=== PATIENT | male | born 1970 | race African-American/Black ===

== ENCOUNTER → 2016-04-17 | Outpatient (CLI) | payer OTHER ==
--- NOTE | 2016-04-17 11:41 | XR ---
EXAMINATION TYPE: XR chest 2V DATE OF EXAM: 04/17/2016 11:26 AM COMPARISON: 04/28/2014 INDICATION: Tobacco use TECHNIQUE: Single frontal view of the chest is obtained. FINDINGS: The heart size is normal. The pulmonary vasculature is normal. The lungs are clear. IMPRESSION: 1. No acute pulmonary process.
== END | disposition home or self-care (01) ==
LOC: LABWHC1 10:55
PROVIDERS: ATTEND Nurse Practitioner
DX: Z51.81 Encounter for therapeutic drug level monitoring (principal); Z79.899 Other long term (current) drug therapy; F17.209 Nicotine dependence, unspecified, with unspecified nicotine-induced disorders
CPT/HCPCS: 36415; 71020; 80164

== ENCOUNTER 2018-03-01 19:38 | Emergency (ER) | payer OTHER ==
[2018-03-01 20:07] VITALS: BP 153/98; PULSE 84; RESP 18; TEMP 98.3
--- NOTE | 2018-03-01 21:16 | CT ---
EXAMINATION TYPE: CT brain sukhi long DATE OF EXAM: 03/01/2018 COMPARISON: None HISTORY: pt fell off deck, hitting LT side of head CT DLP: 1349.8 mGycm, Automated exposure control for dose reduction was used. CONTRAST: Patient injected with 0 mL of Isovue 300. CT of the brain is performed utilizing 3 mm thick sections through the posterior fossa and 3 mm thick sections through the remaining calvarium. Study is performed within 24 hours of arrival to the hospital. No abnormal hyperdensity is present to suggest an acute intracranial hemorrhage. No mass lesion is evident. No acute infarcts are evident. Ventricles and sulci are appropriate for the patient age. There is soft tissue swelling over the left supraorbital region. No underlying fracture is evident. Paranasal sinuses and mastoid air cells within the [id number] are clear. IMPRESSIONS: 1. No acute intracranial process. 2. Mild soft tissue swelling over the left frontal region. CT cervical spine. COMPARISON: None CT of the cervical spine is performed in the axial plane at 2 mm thick sections. Reconstructed image s in the coronal, and sagittal plane are reviewed on the computer. No acute fractures are evident. Vertebral body alignment is normal. Disc heights are preserved. Vertebral body heights are preserved. No spinal canal stenosis is evident. No neural foraminal stenosis is evident. IMPRESSIONS: 1. Normal CT cervical spine.
--- NOTE | 2018-03-01 21:33 | ED ---
Fall HPI - General Chief Complaint: Fall Stated Complaint: fall Time Seen by Provider: 03/01/18 20:15 Source: patient Mode of arrival: ambulatory - History of Present Illness Initial Comments: This is a 47-year-old male the ER for evaluation this male presents ER for evaluation status post fall falling off back landing on the back and back. This happened about 3-4 hours prior to arrival, also complains of knee pain is unconcerned about his knee pain. Patient did take Motrin with no specific help. No shortness of breath. No numbness or tingling in extremities. Patient denies any drug or alcohol use MD Complaint: fall -: hour(s) (4) When Fall Occurred: 4-6 hours [employer] Fall Witnessed: no Place Fall Occurred: home Loss of Consciousness: none Prolonged Down Time?: no Symptoms Prior to Fall: none Location: head, neck Location - Extremities: Left: Shoulder Severity scale (1-10): 2 Context: tripped/slipped Associated Symptoms: denies - Related Data Home Medications Medication Instructions Recorded Confirmed Divalproex [Depakote] 1,000 mg PO HS 03/01/18 03/01/18 Enalapril [Vasotec] 2.5 mg PO DAILY 03/01/18 03/01/18 Ibuprofen [Motrin Ib] 600 mg PO DAILY 03/01/18 03/01/18 Metformin (Unknown) 1 tab PO BID 03/01/18 03/01/18 buPROPion XL [Wellbutrin XL] 150 mg PO DAILY 03/01/18 03/01/18 Allergies Allergy/AdvReac Type Severity Reaction Status Date / Time No Known Allergies Allergy Verified 03/01/18 20:27 Review of Systems ROS Statement: Those systems with pertinent positive or pertinent negative responses have been documented in the HPI. ROS Other: All systems not noted in ROS Statement are negative. Past Medical History Past Medical History: Diabetes Mellitus, Hyperlipidemia, Hypertension, Seizure Disorder History of Any Multi-Drug Resistant Organisms: None Reported Past Surgical History: No Surgical Hx Reported Past Psychological History: Bipolar Smoking Status: Current every day smoker Past Alcohol Use History: None Reported Past Drug Use History: None Reported General Exam Limitations: no limitations General appearance: alert, in no apparent distress Head exam: Present: atraumatic, normocephalic, normal inspection Eye exam: Present: normal appearance, PERRL, EOMI. Absent: scleral icterus, conjunctival injection, periorbital swelling ENT exam: Present: normal exam, mucous membranes moist Neck exam: Present: normal inspection. Absent: tenderness, meningismus, lymphadenopathy Respiratory exam: Present: normal lung sounds bilaterally. Absent: respiratory distress, wheezes, rales, rhonchi, stridor Cardiovascular Exam: Present: regular rate, normal rhythm, normal heart sounds. Absent: systolic murmur, diastolic murmur, rubs, gallop, clicks GI/Abdominal exam: Present: soft, normal bowel sounds. Absent: distended, tenderness, guarding, rebound, rigid Extremities exam: Present: normal inspection, full ROM, normal capillary refill. Absent: tenderness, pedal edema, joint swelling, calf tenderness Back exam: Present: normal inspection Neurological exam: Present: alert, oriented X3, CN II-XII intact Psychiatric exam: Present: normal affect, normal mood Skin exam: Present: warm, dry, intact, normal color. Absent: rash Course Vital Signs 03/01/18 20:01 Temperature 98.3 F Pulse Rate 84 Respiratory 18 Rate Blood Pressure 153/98 O2 Sat by Pulse 100 Oximetry - Reevaluation(s) Reevaluation #1: 03/01/18 22:00 Patient denies any specific complaints pain or needing. Medication currently. Reevaluation #2: 03/01/18 22:00 Patient refusing further x-rays Medical Decision Making - Medical Decision Making 47 male status post fall fall off tach with some neck pain and some shoulder pain. Patient has normal CAT scan brain C-spine, negative left shoulder x-ray can be discharged home - Radiology Data Radiology results: report reviewed (CT brain C-spine and left shoulder x-ray are negative for acute disease), image reviewed Disposition Clinical Impression: Fall, Neck contusion, Contusion of left shoulder Disposition: HOME SELF-CARE Condition: Good Instructions: Cervical Strain (ED), Contusion in Adults (ED) Is patient prescribed a controlled substance at d/c from ED?: No Referrals: [facility] [Primary Care Provider] - 1-2 days
--- NOTE | 2018-03-01 22:12 | XR ---
EXAMINATION TYPE: XR shoulder limited LT DATE OF EXAM: 03/01/2018 COMPARISON: NONE HISTORY: Pain after falling TECHNIQUE: Single view FINDINGS: I see no fracture nor dislocation. Glenohumeral joint is anatomic. There are no pathologic calcifications. IMPRESSION: Negative limited left shoulder exam.
--- NOTE | 2018-03-01 22:14 | XR ---
EXAMINATION TYPE: XR chest 1V DATE OF EXAM: 03/01/2018 COMPARISON: 04/17/2016 HISTORY: Pain after fall TECHNIQUE: Single frontal view of the chest is obtained. FINDINGS: Heart and mediastinum are normal. Lungs are clear. Diaphragm is normal. Bony thorax appear s normal. IMPRESSION: Normal chest. No change.
== END 2018-03-01 22:23 | disposition home or self-care (01) ==
LOC: EC 19:38
DX: S40.012A Contusion of left shoulder, initial encounter (principal); S10.93XA Contusion of unspecified part of neck, initial encounter; E11.9 Type 2 diabetes mellitus without complications; I10 Essential (primary) hypertension; G40.909 Epilepsy, unspecified, not intractable, without status epilepticus; F31.9 Bipolar disorder, unspecified; F17.200 Nicotine dependence, unspecified, uncomplicated; Z79.84 Long term (current) use of oral hypoglycemic drugs; Z79.899 Other long term (current) drug therapy; W01.198A Fall on same level from slipping, tripping and stumbling with subsequent striking against other object, initial encounter; Y92.009 Unspecified place in unspecified non-institutional (private) residence as the place of occurrence of the external cause
CPT/HCPCS: 70450; 71045; 72125; 99284

== ENCOUNTER 2018-05-21 10:49 | Emergency (ER) | payer OTHER ==
[2018-05-21] MEDS ORDERED: ASPIRIN 81 MG PO STA (12:23)
--- NOTE | 2018-05-21 12:23 | ED ---
Nausea/Vomiting/Diarrhea HPI - General Chief complaint: Nausea/Vomiting/Diarrhea Stated complaint: Nausea Time Seen by Provider: 05/21/18 11:19 Source: patient Mode of arrival: ambulatory Limitations: no limitations - History of Present Illness Initial comments: 47-year-old male past nuchal history of diabetes, hypertension, hyperlipidemia, current every day smoker presented today for chief complaint of abdominal pain left lower quadrant, nausea and diarrhea. Patient states last night he began experiencing diarrhea, he denies melena or hematochezia. He states is much softer than his usual bowel movement. She states he had pizza last night prior to the onset of symptoms. Patient states this morning he had nausea and was dry heaving, he states he began experiencing left lower abdominal pain that is stabbing increases with movements. Patient states he has not had a fever, admits to bodyaches. He denies hematemesis, dizziness, visual changes, weakness. He states he has had on-and-off mild dull headache denies this being the worst headache of his life. Patient states this morning he felt as though he had mild chest discomfort after dry heaving, denies back pain, dyspnea, dyspnea upon exertion, remaining ROS (-). Upon arrival patient appears well, no signs of acute distress. VS reveal elevated BP, pt state he took his medication prior to arrival. - Related Data Home Medications Medication Instructions Recorded Confirmed Divalproex [Depakote] 1,000 mg PO HS 03/01/18 05/21/18 buPROPion XL [Wellbutrin XL] 150 mg PO DAILY 03/01/18 05/21/18 Cholecalciferol [Vitamin D3] 5,000 unit PO DAILY 05/21/18 05/21/18 Enalapril [Vasotec] 10 mg PO DAILY 05/21/18 05/21/18 Simvastatin [Zocor] 20 mg PO HS 05/21/18 05/21/18 metFORMIN HCL 1,000 mg PO BID 05/21/18 05/21/18 Allergies Allergy/AdvReac Type Severity Reaction Status Date / Time No Known Allergies Allergy Verified 05/21/18 11:28 Review of Systems ROS Statement: Those systems with pertinent positive or pertinent negative responses have been documented in the HPI. ROS Other: All systems not noted in ROS Statement are negative. Past Medical History Past Medical History: Diabetes Mellitus, Hyperlipidemia, Hypertension, Seizure Disorder History of Any Multi-Drug Resistant Organisms: None Reported Past Surgical History: No Surgical Hx Reported Past Psychological History: Bipolar Smoking Status: Current every day smoker Past Alcohol Use History: None Reported Past Drug Use History: None Reported General Exam - General Exam Comments Initial Comments: General: The patient is awake and alert, in no distress, and does not appear acutely ill. Eye: Pupils are equal, round and reactive to light, extra-ocular movements are intact. No nystagmus. There is normal conjunctiva bilaterally. No signs of icterus. Ears, nose, mouth and throat: There are moist mucous membranes and no oral lesions. Neck: The neck is supple, there is no tenderness or JVD. Cardiovascular: There is a regular rate and rhythm. No murmur, rub or gallop is appreciated. Respiratory: Lungs are clear to auscultation, respirations are non-labored, breath sounds are equal. No wheezes, stridor, rales, or rhonchi. Gastrointestinal: No noted diaphoresis, jaundice, pallor, protecting postures or squirming. Symmetrical pigmentation of abdomen without signs of inflammation, [scars], or striae. Umbilicus mildline, inverted without swelling. No dilated veins. Abdomen contour obese, no noted abdominal distention. No visible masses. No peristalsis, aortic pulsations, or ventral hernia. Bowel sounds audible in all 4 quadrants, unremarkable. No friction rubs or venous hums. No epigastic, hepatic or abdominal bruits. Mild tenderness to deep palpation of the left lower quadrant. No rigidity or guarding no protecting postures.. Liver edge, not palpable. Spleen edge, right and left kidney not palpable. Superior bladder margin non-tender. Special Testing: Negative [place], [place], McBurney, Tayla, cutaneous hyperesthesia. Iliopsoas and obturator tests negative bilaterally. Negative Heel Jar test. No CVA tenderness. Digital rectal exam deferred. Negative izaguirre turners or cullens sign Musculoskeletal: Normal ROM, no tenderness. Strength 5/5. Sensation intact. Radial and DP pulses equal bilaterally 2+. Neurological: A&O x 3. CN II-XII intact, There are no obvious motor or sensory deficits. Coordination appears grossly intact. Speech is normal. Skin: Skin is warm and dry and no rashes or lesions are noted. No lower extremity edema (-) Homans b/l. Psychiatric: Cooperative, appropriate mood & affect, normal judgment. Limitations: no limitations Course Vital Signs 05/21/18 05/21/18 11:03 13:16 Temperature 98.4 F Pulse Rate 78 86 Respiratory 16 18 Rate Blood Pressure 145/99 131/99 O2 Sat by Pulse 98 100 Oximetry Medical Decision Making - Medical Decision Making 47-year-old male presenting for abdominal pain, diarrhea, nausea, dry heaving. Pt laboratory studies unremarkable. Patient hydrated upon examination. Abdominal exam revealed tenderness to palpation of the left lower quadrant. CT revealed findings consistent with enteritis I feel this correlates clinically. Patient has remained symptoms free throughout duration of visit >4 hours. Pt given IVF. At this time I feel patient is stable for discharge with the patient follow-up. Return parameters were discussed at length the patient who verbalized understanding. Patient discharged. Will after discussing the case with a provider Dr. Berrios. - Lab Data Result diagrams: 05/21/18 12:55 05/21/18 12:55 Lab Results 05/21/18 05/21/18 05/21/18 Range/Units 12:55 12:55 12:55 WBC 6.7 (3.8-10.6) k/uL RBC 5.18 (4.30-5.90) m/uL Hgb 13.9 (13.0-17.5) gm/dL Hct 44.0 (39.0-53.0) % MCV 85.0 (80.0-100.0) fL MCH 26.8 (25.0-35.0) pg MCHC 31.5 (31.0-37.0) g/dL RDW 13.7 (11.5-15.5) % Plt Count 212 (150-450) k/uL Neutrophils % 44 % Lymphocytes % 45 % Monocytes % 6 % Eosinophils % 3 % Basophils % 1 % Neutrophils # 2.9 (1.3-7.7) k/uL Lymphocytes # 3.0 (1.0-4.8) k/uL Monocytes # 0.4 (0-1.0) k/uL Eosinophils # 0.2 (0-0.7) k/uL Basophils # 0.0 (0-0.2) k/uL Sodium 138 (137-145) mmol/L Potassium 4.8 (3.5-5.1) mmol/L Chloride 102 (98-107) mmol/L Carbon Dioxide 23 (22-30) mmol/L Anion Gap 13 mmol/L BUN 14 (9-20) mg/dL Creatinine 0.65 L (0.66-1.25) mg/dL Est GFR (CKD-EPI)AfAm >90 (>60 ml/min/1.73 sqM) Est GFR (CKD-EPI)NonAf >90 (>60 ml/min/1.73 sqM) Glucose 109 H (74-99) mg/dL Calcium 9.9 (8.4-10.2) mg/dL Total Bilirubin 0.3 (0.2-1.3) mg/dL AST 18 (17-59) U/L ALT 24 (21-72) U/L Alkaline Phosphatase 54 (38-126) U/L Total Creatine Kinase 160 (55-170) U/L CK-MB (CK-2) 1.4 (0.0-2.4) ng/mL CK-MB (CK-2) Rel Index 0.9 Troponin I <0.012 (0.000-0.034) ng/mL Total Protein 7.3 (6.3-8.2) g/dL Albumin 4.4 (3.5-5.0) g/dL Lipase 202 (23-300) U/L Urine Color Urine Appearance (Clear) Urine pH (5.0-8.0) Ur Specific [place] (1.001-1.035) Urine Protein (Negative) Urine Glucose (UA) (Negative) Urine Ketones (Negative) Urine Blood (Negative) Urine Nitrite (Negative) Urine Bilirubin (Negative) Urine Urobilinogen (<2.0) mg/dL Ur Leukocyte Esterase (Negative) 05/21/18 Range/Units 13:05 WBC (3.8-10.6) k/uL RBC (4.30-5.90) m/uL Hgb (13.0-17.5) gm/dL Hct (39.0-53.0) % MCV (80.0-100.0) fL MCH (25.0-35.0) pg MCHC (31.0-37.0) g/dL RDW (11.5-15.5) % Plt Count (150-450) k/uL Neutrophils % % Lymphocytes % % Monocytes % % Eosinophils % % Basophils % % Neutrophils # (1.3-7.7) k/uL Lymphocytes # (1.0-4.8) k/uL Monocytes # (0-1.0) k/uL Eosinophils # (0-0.7) k/uL Basophils # (0-0.2) k/uL Sodium (137-145) mmol/L Potassium (3.5-5.1) mmol/L Chloride (98-107) mmol/L Carbon Dioxide (22-30) mmol/L Anion Gap mmol/L BUN (9-20) mg/dL Creatinine (0.66-1.25) mg/dL Est GFR (CKD-EPI)AfAm (>60 ml/min/1.73 sqM) Est GFR (CKD-EPI)NonAf (>60 ml/min/1.73 sqM) Glucose (74-99) mg/dL Calcium (8.4-10.2) mg/dL Total Bilirubin (0.2-1.3) mg/dL AST (17-59) U/L ALT (21-72) U/L Alkaline Phosphatase (38-126) U/L Total Creatine Kinase (55-170) U/L CK-MB (CK-2) (0.0-2.4) ng/mL CK-MB (CK-2) Rel Index Troponin I (0.000-0.034) ng/mL Total Protein (6.3-8.2) g/dL Albumin (3.5-5.0) g/dL Lipase (23-300) U/L Urine Color Yellow Urine Appearance Clear (Clear) Urine pH 7.0 (5.0-8.0) Ur Specific [place] 1.019 (1.001-1.035) Urine Protein Negative (Negative) Urine Glucose (UA) Negative (Negative) Urine Ketones 1+ H (Negative) Urine Blood Negative (Negative) Urine Nitrite Negative (Negative) Urine Bilirubin Negative (Negative) Urine Urobilinogen <2.0 (<2.0) mg/dL Ur Leukocyte Esterase Negative (Negative) - EKG Data EKG Comments: Ventricular rate 72 bpm, HI interval 130 ms, to administration 80 ms, QT/QTc 356/389 ms, normal sinus rhythm, nonspecific T-wave abnormality no ST patient or depression. No previous comparison. Interpretted by myself as well as attending provider Disposition Clinical Impression: Diarrhea, Abdominal pain Disposition: HOME SELF-CARE Condition: Good Instructions (If sedation given, give patient instructions): Acute Diarrhea (ED), Abdominal Pain (ED) Additional Instructions: Please use medication as discussed. Please follow-up with family doctor in the next 2 days of symptoms have not improved. Please return to emergency room if the symptoms increase or worsen or for any other concerns. Is patient prescribed a controlled substance at d/c from ED?: No Referrals: [facility] [Primary Care Provider] - 1-2 days Time of Disposition: 15:22
[2018-05-21 13:17] VITALS: PULSE 86; RESP 18
[2018-05-21 14:07] LABS: Basophils % (A) 1 %; Eosinophils # (A) 0.2 k/uL (0-0.7); Eosinophils % (A) 3 %; HGB 13.9 gm/dL (13.0-17.5); Lymphocytes % (A) 45 %; MCH 26.8 pg (25.0-35.0); MCHC 31.5 g/dL (31.0-37.0); Mean Platelet Volume 8.7; Monocytes # (A) 0.4 k/uL (0-1.0); Monocytes % (A) 6 %; Neutrophils # (A) 2.9 k/uL (1.3-7.7); Neutrophils % (A) 44 %; Platelet Count 212 k/uL (150-450); RBC 5.18 m/uL (4.30-5.90); RDW 13.7 % (11.5-15.5); WBC 6.7 k/uL (3.8-10.6)
[2018-05-21 14:09] LABS: Appearance,Urine Clear (Clear); Bilirubin,Urine Negative (Negative); Blood,Urine Negative (Negative); Color,Urine Yellow; Glucose,Urine (UA) Negative (Negative); Ketones,Urine 1+ (Negative); Leukocyte Esterase,Urine Negative (Negative); Nitrite,Urine Negative (Negative); Protein,Urine Negative (Negative); Specific Gravity,Urine 1.019 (1.001-1.035); Urobilinogen,Urine <2.0 mg/dL (<2.0)
[2018-05-21 14:19] LABS: ALT 24 U/L (21-72); AST 18 U/L (17-59); Albumin 4.4 g/dL (3.5-5.0); Alkaline Phosphatase 54 U/L (38-126); Anion Gap 13 mmol/L; Blood Urea Nitrogen 14 mg/dL (9-20); Calcium 9.9 mg/dL (8.4-10.2); Carbon Dioxide 23 mmol/L (22-30); Chloride 102 mmol/L (98-107); Glucose 109 mg/dL (74-99); Lipase 202 U/L (23-300); Potassium 4.8 mmol/L (3.5-5.1); Sodium 138 mmol/L (137-145); Total Bilirubin 0.3 mg/dL (0.2-1.3); Total Protein 7.3 g/dL (6.3-8.2)
[2018-05-21 14:38] LABS: Creatine Kinase 160 U/L (55-170)
[2018-05-21 14:51] LABS: Creatine Kinase MB 1.4 ng/mL (0.0-2.4); Troponin I <0.012 ng/mL (0.000-0.034)
--- NOTE | 2018-05-21 15:10 | CT ---
EXAMINATION TYPE: CT abdomen pelvis w con DATE OF EXAM: 05/21/2018 COMPARISON: None HISTORY: Patient complains of LUQ pain, nausea, vomiting, and diarrhea. CT DLP: 940.7 mGycm Automated exposure control for dose reduction was used. TECHNIQUE: Helical acquisition of images from the lung bases through the pelvis have been completed. CONTRAST: Performed without Oral Contrast and with IV Contrast, patient injected with 100 mL of Isovue 370. FINDINGS: LUNG BASES: No significant abnormality is appreciated. AORTA: No significant abnormality is appreciated. LIVER/GB: No significant abnormality is appreciated. PANCREAS: No significant abnormality is seen. SPLEEN: No significant abnormality is seen. ADRENALS: No significant abnormality is seen. KIDNEYS: No significant abnormality is seen. REPRODUCTIVE ORGANS: No significant abnormality is seen BOWEL: Small bowel abbasi show some thickening. Appendix is measuring short axis of approximately 7 m m. No periappendiceal inflammatory change. FREE AIR: No Free Air visible. ASCITES: None visible. PELVIC ADENOPATHY: None visualized. RETROPERITONEAL ADENOPATHY: No Retroperitoneal Adenopathy visible. URINARY BLADDER: No significant abnormality is seen. OSSEOUS STRUCTURES: Small posterior disc bulge L5-S1. IMPRESSION: FINDINGS COMPATIBLE WITH ENTERITIS. Borderline appendiceal measurement without inflammatory change s to suggest appendicitis, follow-up as indicated
[2018-05-21 16:03] VITALS: BP 149/93; TEMP 97.9
== END 2018-05-21 16:03 | disposition home or self-care (01) ==
LOC: EC 10:49
DX: R19.7 Diarrhea, unspecified (principal); R10.32 Left lower quadrant pain; R94.31 Abnormal electrocardiogram [ECG] [EKG]; R11.2 Nausea with vomiting, unspecified; R51 Headache; R52 Pain, unspecified; E11.9 Type 2 diabetes mellitus without complications; E78.5 Hyperlipidemia, unspecified; I10 Essential (primary) hypertension; G40.909 Epilepsy, unspecified, not intractable, without status epilepticus; F31.9 Bipolar disorder, unspecified; F17.200 Nicotine dependence, unspecified, uncomplicated; Z79.84 Long term (current) use of oral hypoglycemic drugs; Z79.899 Other long term (current) drug therapy
CPT/HCPCS: 36415; 74177; 80053; 81003; 82550; 82553; 83690; 84484; 85025; 93005; 99284

== ENCOUNTER 2020-08-09 15:22 | Emergency (ER) | payer OTHER ==
[2020-08-09 16:49] VITALS: BP 131/82; PULSE 75; RESP 18; TEMP 97.9
[2020-08-09] MEDS ORDERED: SODIUM CHLORIDE 0.9% 1,000 ML IV STA (17:48)
[2020-08-09] MEDS ORDERED: ONDANSETRON 4 MG/2 ML VIAL IVP STA (17:48)
[2020-08-09] MEDS ORDERED: DICYCLOMINE 10 MG/ML 2 ML AMP IM STA (17:48)
[2020-08-09] MEDS ORDERED: PANTOPRAZOLE 40 MG/10 ML VIAL IVP STA (17:48)
[2020-08-09 18:26] LABS: Basophils # (A) 0.1 k/uL (0-0.2); Basophils % (A) 1 %; Eosinophils # (A) 0.2 k/uL (0-0.7); Eosinophils % (A) 3 %; HCT 43.2 % (39.0-53.0); HGB 14.5 gm/dL (13.0-17.5); Lymphocytes # (A) 2.4 k/uL (1.0-4.8); Lymphocytes % (A) 45 %; MCH 28.3 pg (25.0-35.0); MCHC 33.5 g/dL (31.0-37.0); MCV 84.5 fL (80.0-100.0); Monocytes # (A) 0.2 k/uL (0-1.0); Monocytes % (A) 4 %; Neutrophils # (A) 2.4 k/uL (1.3-7.7); Neutrophils % (A) 46 %; Platelet Count 211 k/uL (150-450); RBC 5.11 m/uL (4.30-5.90); RDW 13.3 % (11.5-15.5); WBC 5.3 k/uL (3.8-10.6)
[2020-08-09 18:30] LABS: Appearance,Urine Clear (Clear); Bilirubin,Urine Negative (Negative); Blood,Urine Negative (Negative); Color,Urine Yellow; Glucose,Urine (UA) Trace (Negative); Ketones,Urine 1+ (Negative); Leukocyte Esterase,Urine Negative (Negative); Nitrite,Urine Negative (Negative); Protein,Urine Negative (Negative); Specific Gravity,Urine 1.025 (1.001-1.035)
[2020-08-09 18:40] LABS: ALT 14 U/L (4-49); AST 23 U/L (17-59); African American GFR (CKD) >90 (>60 ml/min/1.73 sqM); Albumin 4.5 g/dL (3.5-5.0); Alkaline Phosphatase 59 U/L (38-126); Anion Gap 8 mmol/L; Blood Urea Nitrogen 18 mg/dL (9-20); Calcium 9.8 mg/dL (8.4-10.2); Carbon Dioxide 26 mmol/L (22-30); Chloride 105 mmol/L (98-107); Glucose 148 mg/dL (74-99); Lipase 144 U/L (23-300); Non-African American GFR(CKD) >90 (>60 ml/min/1.73 sqM); Sodium 139 mmol/L (137-145); Total Bilirubin 0.5 mg/dL (0.2-1.3); Total Protein 7.2 g/dL (6.3-8.2)
--- NOTE | 2020-08-09 18:45 | ED ---
Nausea/Vomiting/Diarrhea HPI - General Chief complaint: Nausea/Vomiting/Diarrhea Stated complaint: Vomiting/Diarrhea Time Seen by Provider: 08/09/20 17:30 Source: patient Mode of arrival: ambulatory Limitations: no limitations - History of Present Illness Initial comments: 49-year-old male presents to the emergency department with a chief complaint of nausea and diarrhea 2 days. Patient reports he has been nauseous but never actually vomited. Reports diarrhea for the past 2 days after eating [employer]. States he has not a [employer] in over a month. He reports some diffuse lower abdominal tenderness reports it is only mild periods it does not appear to be post prandial. Patient denies any fevers or chills chest pain or shortness of breath. He denies any hematuria, hematochezia or melena. States the pain is nonradiating otherwise. Denies any penile discharge, testicular swelling or pain. - Related Data Home Medications Medication Instructions Recorded Confirmed Divalproex [Depakote] 1,000 mg PO HS 03/01/18 05/21/18 buPROPion XL [Wellbutrin XL] 150 mg PO DAILY 03/01/18 05/21/18 Cholecalciferol [Vitamin D3] 5,000 unit PO DAILY 05/21/18 05/21/18 Enalapril [Vasotec] 10 mg PO DAILY 05/21/18 05/21/18 Simvastatin [Zocor] 20 mg PO HS 05/21/18 05/21/18 metFORMIN HCL 1,000 mg PO BID 05/21/18 05/21/18 Previous Rx's Medication Instructions Recorded Loperamide [Imodium] 2 mg PO QID #15 capsule 08/09/20 Ondansetron Odt [Zofran Odt] 4 mg PO Q8HR PRN #10 tab 08/09/20 Allergies Allergy/AdvReac Type Severity Reaction Status Date / Time No Known Allergies Allergy Verified 08/09/20 16:49 Review of Systems ROS Statement: Those systems with pertinent positive or pertinent negative responses have been documented in the HPI. ROS Other: All systems not noted in ROS Statement are negative. Past Medical History Past Medical History: Diabetes Mellitus, Hyperlipidemia, Hypertension, Seizure Disorder History of Any Multi-Drug Resistant Organisms: None Reported Past Surgical History: No Surgical Hx Reported Past Psychological History: Bipolar Smoking Status: Current every day smoker Past Alcohol Use History: Occasional Past Drug Use History: None Reported General Exam Limitations: no limitations General appearance: alert, in no apparent distress Head exam: Present: atraumatic, normocephalic, normal inspection Eye exam: Present: normal appearance, PERRL, EOMI Pupils: Present: normal accommodation ENT exam: Present: normal exam, normal oropharynx, mucous membranes moist Neck exam: Present: normal inspection, full ROM. Absent: tenderness Respiratory exam: Present: normal lung sounds bilaterally. Absent: respiratory distress Cardiovascular Exam: Present: regular rate, normal rhythm, normal heart sounds. Absent: systolic murmur GI/Abdominal exam: Present: soft. Absent: distended, tenderness, guarding Extremities exam: Present: normal inspection, full ROM, normal capillary refill. Absent: tenderness, pedal edema, joint swelling Back exam: Present: normal inspection, full ROM. Absent: tenderness, CVA tenderness (R), CVA tenderness (L) Neurological exam: Present: alert, oriented X3 Psychiatric exam: Present: normal affect, normal mood Skin exam: Present: warm, dry, intact, normal color Course Vital Signs 08/09/20 16:44 Temperature 97.9 F Pulse Rate 75 Respiratory 18 Rate Blood Pressure 131/82 O2 Sat by Pulse 98 Oximetry Medical Decision Making - Medical Decision Making 49-year-old male presents to the emergency department with a chief complaint of nausea and diarrhea. On physical examination, no significant abdominal tende rness noted. No CVA tenderness either. Vital signs within normal limits. EKG showing no acute ischemic changes. Laboratory work is unremarkable. I suspect the patient does develop enteritis after eating Fritz's. UA did show some ketones suggesting dehydration. Patient was given IV fluids and Zofran. On reevaluation, he reports a proven symptoms. Will be discharged with antidiarrheal medications as well as Zofran. Advised to follow with a primary care physician. Return primers were thoroughly discussed the patient was assisting agreeable. Case discussed with Dr. Berrios. - Lab Data Result diagrams: 08/09/20 18:12 08/09/20 18:12 Lab Results 08/09/20 08/09/20 08/09/20 Range/Units 18:12 18:12 18:14 WBC 5.3 (3.8-10.6) k/uL RBC 5.11 (4.30-5.90) m/uL Hgb 14.5 (13.0-17.5) gm/dL Hct 43.2 (39.0-53.0) % MCV 84.5 (80.0-100.0) fL MCH 28.3 (25.0-35.0) pg MCHC 33.5 (31.0-37.0) g/dL RDW 13.3 (11.5-15.5) % Plt Count 211 (150-450) k/uL MPV 9.0 Neutrophils % 46 % Lymphocytes % 45 % Monocytes % 4 % Eosinophils % 3 % Basophils % 1 % Neutrophils # 2.4 (1.3-7.7) k/uL Lymphocytes # 2.4 (1.0-4.8) k/uL Monocytes # 0.2 (0-1.0) k/uL Eosinophils # 0.2 (0-0.7) k/uL Basophils # 0.1 (0-0.2) k/uL Sodium 139 (137-145) mmol/L Potassium 4.0 (3.5-5.1) mmol/L Chloride 105 (98-107) mmol/L Carbon Dioxide 26 (22-30) mmol/L Anion Gap 8 mmol/L BUN 18 (9-20) mg/dL Creatinine 0.81 (0.66-1.25) mg/dL Est GFR (CKD-EPI)AfAm >90 (>60 ml/min/1.73 sqM) Est GFR (CKD-EPI)NonAf >90 (>60 ml/min/1.73 sqM) Glucose 148 H (74-99) mg/dL Calcium 9.8 (8.4-10.2) mg/dL Total Bilirubin 0.5 (0.2-1.3) mg/dL AST 23 (17-59) U/L ALT 14 (4-49) U/L Alkaline Phosphatase 59 (38-126) U/L Total Protein 7.2 (6.3-8.2) g/dL Albumin 4.5 (3.5-5.0) g/dL Lipase 144 (23-300) U/L Urine Color Yellow Urine Appearance Clear (Clear) Urine pH 6.0 (5.0-8.0) Ur Specific [place] 1.025 (1.001-1.035) Urine Protein Negative (Negative) Urine Glucose (UA) Trace H (Negative) Urine Ketones 1+ H (Negative) Urine Blood Negative (Negative) Urine Nitrite Negative (Negative) Urine Bilirubin Negative (Negative) Urine Urobilinogen 2.0 (<2.0) mg/dL Ur Leukocyte Esterase Negative (Negative) - EKG Data EKG Comments: Sinus rhythm with no acute ischemic changes Ventricular rate 63, IA 152, QRS 82, QTC 386 Disposition Clinical Impression: Dehydration, Diarrhea Disposition: HOME SELF-CARE Condition: Stable Instructions (If sedation given, give patient instructions): Acute Diarrhea (ED) Additional Instructions: Please return to the Emergency Department if symptoms worsen or any other concerns. Prescriptions: Loperamide [Imodium] 2 mg PO QID #15 capsule Ondansetron Odt [Zofran Odt] 4 mg PO Q8HR PRN #10 tab PRN Reason: Nausea Is patient prescribed a controlled substance at d/c from ED?: No Referrals: None,Stated [Primary Care Provider] - 1-2 days Time of Disposition: 19:08
== END 2020-08-09 19:43 | disposition home or self-care (01) ==
LOC: EC 15:22
DX: E86.0 Dehydration (principal); R19.7 Diarrhea, unspecified; R11.2 Nausea with vomiting, unspecified; I10 Essential (primary) hypertension; E11.9 Type 2 diabetes mellitus without complications; E78.5 Hyperlipidemia, unspecified; G40.909 Epilepsy, unspecified, not intractable, without status epilepticus; F31.9 Bipolar disorder, unspecified; F17.200 Nicotine dependence, unspecified, uncomplicated; Z79.84 Long term (current) use of oral hypoglycemic drugs; Z79.899 Other long term (current) drug therapy
CPT/HCPCS: 36415; 93005; 80053; 83690; 85025; 81003; 99284; 96374; 96375; 96361; 96372; J0500; J2405; C9113

== ENCOUNTER 2020-12-13 14:50 | Emergency (ER) | payer OTHER ==
[2020-12-13 18:06] VITALS: RESP 20
[2020-12-13] MEDS ORDERED: diphenhydrAMINE 50 MG/ML 1 ML VIAL IVP STA (18:20)
[2020-12-13] MEDS ORDERED: ONDANSETRON 4 MG/2 ML VIAL IVP STA (18:20)
[2020-12-13] MEDS ORDERED: MORPHINE SULFATE 4 MG/ML SYRINGE IV STA (18:20)
[2020-12-13] MEDS ORDERED: SODIUM CHLORIDE 0.9% 1,000 ML IV STA (18:20)
[2020-12-13] MEDS ORDERED: FAMOTIDINE 20 MG/2 ML VIAL IV STA (18:22)
[2020-12-13 19:07] LABS: Basophils # (A) 0.1 k/uL (0-0.2); Basophils % (A) 1 %; Eosinophils # (A) 0.1 k/uL (0-0.7); Eosinophils % (A) 2 %; HGB 15.1 gm/dL (13.0-17.5); Lymphocytes # (A) 2.9 k/uL (1.0-4.8); Lymphocytes % (A) 41 %; MCH 27.7 pg (25.0-35.0); MCHC 32.2 g/dL (31.0-37.0); MCV 85.9 fL (80.0-100.0); Mean Platelet Volume 10.1; Monocytes # (A) 0.4 k/uL (0-1.0); Monocytes % (A) 6 %; Neutrophils # (A) 3.5 k/uL (1.3-7.7); Neutrophils % (A) 49 %; Platelet Count 200 k/uL (150-450); RBC 5.47 m/uL (4.30-5.90); RDW 13.2 % (11.5-15.5); WBC 7.1 k/uL (3.8-10.6)
[2020-12-13 19:08] LABS: Appearance,Urine Clear (Clear); Bilirubin,Urine Negative (Negative); Blood,Urine Negative (Negative); Color,Urine Yellow; Glucose,Urine (UA) Negative (Negative); Ketones,Urine Negative (Negative); Leukocyte Esterase,Urine Negative (Negative); Nitrite,Urine Negative (Negative); Protein,Urine Negative (Negative); Specific Gravity,Urine 1.019 (1.001-1.035); Urobilinogen,Urine <2.0 mg/dL (<2.0)
[2020-12-13 19:18] LABS: ALT 17 U/L (4-49); AST 27 U/L (17-59); African American GFR (CKD) >90 (>60 ml/min/1.73 sqM); Albumin 5.1 g/dL (3.5-5.0); Alkaline Phosphatase 55 U/L (38-126); Amylase 98 U/L (30-110); Anion Gap 11 mmol/L; Blood Urea Nitrogen 15 mg/dL (9-20); Calcium 10.4 mg/dL (8.4-10.2); Carbon Dioxide 24 mmol/L (22-30); Chloride 99 mmol/L (98-107); Glucose 116 mg/dL (74-99); Lipase 133 U/L (23-300); Non-African American GFR(CKD) >90 (>60 ml/min/1.73 sqM); Potassium 4.7 mmol/L (3.5-5.1); Sodium 134 mmol/L (137-145); Total Bilirubin 0.6 mg/dL (0.2-1.3); Total Protein 8.5 g/dL (6.3-8.2)
--- NOTE | 2020-12-13 19:42 | XR ---
EXAMINATION TYPE: XR abdomen 2V DATE OF EXAM: 12/13/2020 COMPARISON: NONE HISTORY: Abnormal pain TECHNIQUE: Supine and upright views FINDINGS: There is no sign of intestinal obstruction or pneumoperitoneum. Fecal pattern is normal. Th ere is no sign of a mass. There are no pathologic calcifications over the kidneys. Lung bases are chay ar. IMPRESSION: Nonacute abdomen.
--- NOTE | 2020-12-13 20:06 | ED ---
General Adult HPI - General Chief complaint: Abdominal Pain Stated complaint: ABD Pain Time Seen by Provider: 12/13/20 17:46 Source: patient, RN notes reviewed, old records reviewed Mode of arrival: ambulatory Limitations: no limitations - History of Present Illness Initial comments: I evaluated the patient when he was placed in a room. Patient is a 50-year-old male with past medical history remarkable for diabetes, hypertension, seizure disorder, hyperlipidemia presents emergency Department complaining of nonspecific abdominal discomfort as well as subjective chills going on for last 2 days. He is concerned he may have a stomach flu and presents emergency department for evaluation. States he felt nauseous at one point but no longer does at this time. Denies any diarrhea, constipation. Endorses crampy abdominal discomfort that comes and goes. He states it is minimally there is about how. He states he has had a UTI previously and would like to be evaluated for 1. Denies any chest pain, shortness breath, cough and denies any headaches, weakness, numbness. Denies any rashes. He has no known sick contacts. He presents over concern for possible infectious etiology for symptoms. - Related Data Home Medications Medication Instructions Recorded Confirmed Divalproex [Depakote] 1,000 mg PO HS 03/01/18 05/21/18 buPROPion XL [Wellbutrin XL] 150 mg PO DAILY 03/01/18 05/21/18 Cholecalciferol [Vitamin D3] 5,000 unit PO DAILY 05/21/18 05/21/18 Enalapril [Vasotec] 10 mg PO DAILY 05/21/18 05/21/18 Simvastatin [Zocor] 20 mg PO HS 05/21/18 05/21/18 metFORMIN HCL [Glucophage] 1,000 mg PO BID 05/21/18 05/21/18 Previous Rx's Medication Instructions Recorded Loperamide [Imodium] 2 mg PO QID #15 capsule 08/09/20 Ondansetron Odt [Zofran Odt] 4 mg PO Q8HR PRN #10 tab 08/09/20 Ondansetron Odt [Zofran Odt] 4 mg PO Q8HR PRN 2 Days #6 tab 12/13/20 Allergies Allergy/AdvReac Type Severity Reaction Status Date / Time No Known Allergies Allergy Verified 12/13/20 16:24 Review of Systems ROS Statement: Those systems with pertinent positive or pertinent negative responses have been documented in the HPI. Review of Systems: CONST: Denies fever EYES: Denies blurry vision ENT: Denies nasal congestion C/V: Denies Chest pain RESP: Denies shortness of breath GI: Endorses crampy abdominal pain. : Denies dysuria SKIN: Denies rash. MSK: Denies joint pain. NEURO: Denies headache ROS Other: All systems not noted in ROS Statement are negative. Past Medical History Past Medical History: Diabetes Mellitus, Hyperlipidemia, Hypertension, Seizure Disorder History of Any Multi-Drug Resistant Organisms: None Reported Past Surgical History: No Surgical Hx Reported Past Psychological History: Bipolar Smoking Status: Current every day smoker Past Alcohol Use History: Occasional Past Drug Use History: None Reported General Exam - General Exam Comments Initial Comments: General: Appears in no acute distress. HEAD: Normal with no signs of head trauma. EYES: PERRLA, EOMI, conjunctiva normal, no discharge. ENT: Hearing grossly intact, normal oropharynx. Moist mucous members. RESPIRATORY: Clear breath sounds bilaterally. No wheezes, rales, or rhonchi. C/V: Regular rate and rhythm. S1 and S2 auscultated, no edema, peripheral pulses 2+ and intact throughout ABD: Abdomen is soft, nondistended. Patient is generally nontender to palpation since to be more subjective. I'm able to palpate his abdomen without any wincing without any complaints of pain. There is no guarding. No rebound tenderness. No peritoneal signs. No CVA tenderness to percussion. Unr emarkable abdominal exam. EXT: Normal range of motion, no obvious deformity SKIN: No rashes or lesions observed on exposed skin. NEURO: Alert and oriented 4. Limitations: no limitations Course Vital Signs 12/13/20 12/13/20 16:24 18:00 Temperature 98.5 F Pulse Rate 75 75 Respiratory 18 20 Rate Blood Pressure 145/93 157/104 O2 Sat by Pulse 100 99 Oximetry Medical Decision Making - Medical Decision Making Based on the patient's presentation and physical exam, I would like to rule out COVID-19 as well as acute intra-abdominal process. I low suspicion for anything other than a viral etiology for his current symptoms, however we will obtain basic laboratory studies, abdominal x-ray, urinalysis and provide the patient with 1 L fluid bolus, as well as IV morphine, Zofran, Pepcid, Benadryl. Patient was in agreement this plan. Abdominal x-ray was unremarkable. Laboratory studies were remarkable for a very mild hypercalcemia of 10.4, a mild hyponatremia of 134 which could be secondary to mild dehydration, as well as a normal urinalysis and negative Covid swab. Reevaluation come patient's abdominal pain is resolved. He is feeling improved. I do believe it is safe for him to be discharged home. He will be given a work note for tonight. Patient was in agreement this plan. I will provide the patient with a prescription for Zofran ODT. I instructed the patient to follow up with their PCP in the next 3 days. I explained that the patient should return to the emergency department if they experience any worsening symptoms. Strict return precautions were discussed with the patient. The patient expressed understanding of these instructions. I answered all questions that the patient had. The patient was discharged home in good condition with their prescriptions and follow up information. - Lab Data Result diagrams: 12/13/20 18:36 12/13/20 18:36 Lab Results 12/13/20 12/13/20 12/13/20 Range/Units 16:28 18:36 18:36 WBC 7.1 (3.8-10.6) k/uL RBC 5.47 (4.30-5.90) m/uL Hgb 15.1 (13.0-17.5) gm/dL Hct 47.0 (39.0-53.0) % MCV 85.9 (80.0-100.0) fL MCH 27.7 (25.0-35.0) pg MCHC 32.2 (31.0-37.0) g/dL RDW 13.2 (11.5-15.5) % Plt Count 200 (150-450) k/uL MPV 10.1 Neutrophils % 49 % Lymphocytes % 41 % Monocytes % 6 % Eosinophils % 2 % Basophils % 1 % Neutrophils # 3.5 (1.3-7.7) k/uL Lymphocytes # 2.9 (1.0-4.8) k/uL Monocytes # 0.4 (0-1.0) k/uL Eosinophils # 0.1 (0-0.7) k/uL Basophils # 0.1 (0-0.2) k/uL Sodium (137-145) mmol/L Potassium (3.5-5.1) mmol/L Chloride (98-107) mmol/L Carbon Dioxide (22-30) mmol/L Anion Gap mmol/L BUN (9-20) mg/dL Creatinine (0.66-1.25) mg/dL Est GFR (CKD-EPI)AfAm (>60 ml/min/1.73 sqM) Est GFR (CKD-EPI)NonAf (>60 ml/min/1.73 sqM) Glucose (74-99) mg/dL Calcium (8.4-10.2) mg/dL Total Bilirubin (0.2-1.3) mg/dL AST (17-59) U/L ALT (4-49) U/L Alkaline Phosphatase (38-126) U/L Total Protein (6.3-8.2) g/dL Albumin (3.5-5.0) g/dL Amylase (30-110) U/L Lipase (23-300) U/L Urine Color Yellow Urine Appearance Clear (Clear) Urine pH 7.0 (5.0-8.0) Ur Specific [place] 1.019 (1.001-1.035) Urine Protein Negative (Negative) Urine Glucose (UA) Negative (Negative) Urine Ketones Negative (Negative) Urine Blood Negative (Negative) Urine Nitrite Negative (Negative) Urine Bilirubin Negative (Negative) Urine Urobilinogen <2.0 (<2.0) mg/dL Ur Leukocyte Esterase Negative (Negative) Coronavirus (PCR) Not Detected (Not Detectd) 12/13/20 Range/Units 18:36 WBC (3.8-10.6) k/uL RBC (4.30-5.90) m/uL Hgb (13.0-17.5) gm/dL Hct (39.0-53.0) % MCV (80.0-100.0) fL MCH (25.0-35.0) pg MCHC (31.0-37.0) g/dL RDW (11.5-15.5) % Plt Count (150-450) k/uL MPV Neutrophils % % Lymphocytes % % Monocytes % % Eosinophils % % Basophils % % Neutrophils # (1.3-7.7) k/uL Lymphocytes # (1.0-4.8) k/uL Monocytes # (0-1.0) k/uL Eosinophils # (0-0.7) k/uL Basophils # (0-0.2) k/uL Sodium 134 L (137-145) mmol/L Potassium 4.7 (3.5-5.1) mmol/L Chloride 99 (98-107) mmol/L Carbon Dioxide 24 (22-30) mmol/L Anion Gap 11 mmol/L BUN 15 (9-20) mg/dL Creatinine 0.71 (0.66-1.25) mg/dL Est GFR (CKD-EPI)AfAm >90 (>60 ml/min/1.73 sqM) Est GFR (CKD-EPI)NonAf >90 (>60 ml/min/1.73 sqM) Glucose 116 H (74-99) mg/dL Calcium 10.4 H (8.4-10.2) mg/dL Total Bilirubin 0.6 (0.2-1.3) mg/dL AST 27 (17-59) U/L ALT 17 (4-49) U/L Alkaline Phosphatase 55 (38-126) U/L Total Protein 8.5 H (6.3-8.2) g/dL Albumin 5.1 H (3.5-5.0) g/dL Amylase 98 (30-110) U/L Lipase 133 (23-300) U/L Urine Color Urine Appearance (Clear) Urine pH (5.0-8.0) Ur Specific [place] (1.001-1.035) Urine Protein (Negative) Urine Glucose (UA) (Negative) Urine Ketones (Negative) Urine Blood (Negative) Urine Nitrite (Negative) Urine Bilirubin (Negative) Urine Urobilinogen (<2.0) mg/dL Ur Leukocyte Esterase (Negative) Coronavirus (PCR) (Not Detectd) Disposition Clinical Impression: Abdominal pain of unknown etiology, Viral syndrome Disposition: HOME SELF-CARE Condition: Good Instructions (If sedation given, give patient instructions): Abdominal Pain (ED) Prescriptions: Ondansetron Odt [Zofran Odt] 4 mg PO Q8HR PRN 2 Days #6 tab PRN Reason: Nausea Is patient prescribed a controlled substance at d/c from ED?: No Referrals: [facility] [Primary Care Provider] - 1-2 days
[2020-12-13 20:42] VITALS: BP 149/92; PULSE 76; TEMP 98.1
== END 2020-12-13 20:42 | disposition home or self-care (01) ==
LOC: EC 14:50
DX: R10.9 Unspecified abdominal pain (principal); B34.9 Viral infection, unspecified; I10 Essential (primary) hypertension; E11.9 Type 2 diabetes mellitus without complications; E78.5 Hyperlipidemia, unspecified; Z79.84 Long term (current) use of oral hypoglycemic drugs; F31.9 Bipolar disorder, unspecified; F17.200 Nicotine dependence, unspecified, uncomplicated; Z79.899 Other long term (current) drug therapy; Z20.822 Contact with and (suspected) exposure to COVID-19
CPT/HCPCS: 99284; 96374; 96375 ×3; 96361; 80053; 82150; 83690; 85025; 81003; 87635; 74019; J2270; J1200; J2405

== ENCOUNTER 2022-05-17 11:31 | Emergency (ER) | payer OTHER ==
[2022-05-17] MEDS ORDERED: GLUCAGON 1 MG/ML VIAL IM STA (12:16)
--- NOTE | 2022-05-17 12:22 | ED ---
General Adult HPI - General Chief complaint: Recheck/Abnormal Lab/Rx Stated complaint: Swallowed FB Time Seen by Provider: 05/17/22 11:54 Source: patient, RN notes reviewed Mode of arrival: ambulatory Limitations: no limitations - History of Present Illness Initial comments: 51-year-old -[place] male with no significant past medical history prese nts to the emergency department with a chief complaint of dysphagia. Patient reports that he woke up this morning with a "since patient with something with some stuck in his throat. " He reports that he believes that is the most. He reports that he lives in a residential and there are moist there. He denies any cough, dyspnea, fever, vomiting, diarrhea. He does report having a psychiatric history for which he takes his medications daily for. - Related Data Home Medications Medication Instructions Recorded Confirmed Divalproex [Depakote] 1,000 mg PO HS 03/01/18 05/21/18 buPROPion XL [Wellbutrin XL] 150 mg PO DAILY 03/01/18 05/21/18 Cholecalciferol [Vitamin D3] 5,000 unit PO DAILY 05/21/18 05/21/18 Enalapril [Vasotec] 10 mg PO DAILY 05/21/18 05/21/18 Simvastatin [Zocor] 20 mg PO HS 05/21/18 05/21/18 metFORMIN HCL [Glucophage] 1,000 mg PO BID 05/21/18 05/21/18 Previous Rx's Medication Instructions Recorded Loperamide [Imodium] 2 mg PO QID #15 capsule 08/09/20 Ondansetron Odt [Zofran Odt] 4 mg PO Q8HR PRN #10 tab 08/09/20 Ondansetron Odt [Zofran Odt] 4 mg PO Q8HR PRN 2 Days #6 tab 12/13/20 Allergies Allergy/AdvReac Type Severity Reaction Status Date / Time No Known Allergies Allergy Verified 05/17/22 11:52 Review of Systems ROS Statement: Those systems with pertinent positive or pertinent negative responses have been documented in the HPI. ROS Other: All systems not noted in ROS Statement are negative. Past Medical History Past Medical History: Diabetes Mellitus, Hyperlipidemia, Hypertension, Seizure Disorder History of Any Multi-Drug Resistant Organisms: None Reported Past Surgical History: No Surgical Hx Reported Past Psychological History: Anxiety, Bipolar, Depression Smoking Status: Current every day smoker Past Alcohol Use History: Occasional Past Drug Use History: Marijuana General Exam Limitations: no limitations General appearance: alert, in no apparent distress Head exam: Present: atraumatic, normocephalic, normal inspection Eye exam: Present: normal appearance, PERRL, EOMI. Absent: scleral icterus, conjunctival injection, periorbital swelling ENT exam: Present: normal exam, mucous membranes moist Neck exam: Present: normal inspection. Absent: tenderness, meningismus, lymphadenopathy Respiratory exam: Present: normal lung sounds bilaterally. Absent: respiratory distress, wheezes, rales, rhonchi, stridor Cardiovascular Exam: Present: regular rate, normal rhythm, normal heart sounds. Absent: systolic murmur, diastolic murmur, rubs, gallop, clicks GI/Abdominal exam: Present: soft, normal bowel sounds. Absent: distended, tenderness, guarding, rebound, rigid Extremities exam: Present: normal inspection, full ROM, normal capillary refill. Absent: tenderness, pedal edema, joint swelling, calf tenderness Back exam: Present: normal inspection Neurological exam: Present: alert, oriented X3, CN II-XII intact Psychiatric exam: Present: normal affect, normal mood Skin exam: Present: warm, dry, intact, normal color. Absent: rash Course Vital Signs 05/17/22 05/17/22 11:47 13:53 Temperature 97.5 F L 98.2 F Pulse Rate 75 72 Respiratory 20 14 Rate Blood Pressure 133/88 136/78 O2 Sat by Pulse 99 100 Oximetry Medical Decision Making - Medical Decision Making Was pt. sent in by a medical professional or institution (Dr. PA, [facility], urgent care, hospital, or intermediate...) When possible be specific @ -[No] Did you speak to anyone other than the patient for history (EMS, parent, family, police, friend...)? What history was obtained from this source @ -[No] Did you review nursing and triage notes (agree or disagree)? Why? @ -[I reviewed and agree with nursing and triage notes] Were old charts reviewed (outside hosp., previous admission, EMS record, old EKG, old radiological studies, urgent care reports/EKG's, intermediate records)? Report findings @ -[No old charts were reviewed] Differential Diagnosis (chest pain, altered mental status, abdominal pain women, abdominal pain men, vaginal bleeding, weakness, fever, dyspnea, syncope, headache, dizziness, GI bleed, back pain, seizure, CVA, palpatations, mental health, musculoskeletal)? @ -[not applicable] EKG interpreted by me (3pts min.). @ -[As above] X-rays interpreted by me (1pt min.). @ -[Soft tissue x-ray negative for any evidence of foreign body CT interpreted by me (1pt min.). @ -[None done] U/S interpreted by me (1pt. min.). @ -[None done] What testing was considered but not performed or refused? (CT, X-rays, U/S, labs)? Why? @ -[None] What meds were considered but not given or refused? Why? @ -[None] Did you discuss the management of the patient with other professionals (professionals i.e. , PA, [facility], lab, RT, psych nurse, social service assistant, journalism internship, teacher, disciplinary hearing officer, caser)? Give summary @ -[No] Was smoking cessation discussed for >3mins.? @ -[No] Was critical care preformed (if so, how long)? @ -[No] Were there social determinants of health that impacted care today? How? (Homelessness, low income, unemployed, alcoholism, drug addiction, transportation, low edu. Level, literacy, decrease access to med. care, shelter, rehab)? @ -[No] Was there de-escalation of care discussed even if they declined (Discuss DNR or withdrawal of care, Hospice)? DNR status @ -[No] What co-morbidities impacted this encounter? (DM, HTN, Smoking, COPD, CAD, Cancer, CVA, ARF, Chemo, Hep., AIDS, mental health diagnosis, sleep apnea, morbid obesity)? @ -[None] Was patient admitted / discharged? Hospital course, mention meds given and route, prescriptions, significant lab abnormalities, going to OR and other pertinent info. @ -Discharged. This is a 51 year-old male who presents the emergency department with dysphagia. Patient had a thorough history and physical exam performed. Exam is essentially unremarkable, heart rate regular rate and rhythm, lungs clear to auscultation bilaterally abdomen is soft and nontender. Patient able to speak in complete sentences airway remained patent. Patient had lab work and imaging performed which was essentially unremarkable Patient was given glucagon with symptomatic relief. I discussed the results in detail with the patient who verbalized understanding and all questions and concerns were addressed. Return precautions were discussed. Patient was given a prescription for [place]. She was encouraged to follow up with PCP in 1-2 days. Patient discharged in stable condition. Case discussed with TOMI Dinh who agrees with plan of care Undiagnosed new problem with uncertain prognosis? @ -[No] Drug Therapy requiring intensive monitoring for toxicity (Heparin, Nitro, Insulin, Cardizem)? @ -[No] Were any procedures done? @ -[No] Diagnosis/symptom? @ -foriegn body sensation Acute, or Chronic, or Acute on Chronic? @ -acute Uncomplicated (without systemic symptoms) or Complicated (systemic symptoms)? @ -uncomplicated Side effects of treatment? @ -[No] Exacerbation, Progression, or Severe Exacerbation? @ -[No] Poses a threat to life or bodily function? How? (Chest pain, [place], [place], pneumonia, PE, COPD, DKA, ARF, appy, cholecystitis, CVA, Diverticulitis, Homicidal, Suicidal, threat to staff... and all critical care pts) @ -low likleihood Disposition Clinical Impression: Dysphagia Disposition: HOME SELF-CARE Condition: Stable Instructions (If sedation given, give patient instructions): Dysphagia (ED) Additional Instructions: Please return to the nearest emergency department if symptoms worsen or persist Is patient prescribed a controlled substance at d/c from ED?: No Referrals: [facility] [Primary Care Provider] - 1-2 days Time of Disposition: 13:43
--- NOTE | 2022-05-17 13:40 | XR ---
EXAMINATION TYPE: XR soft tissue neck DATE OF EXAM: 05/17/2022 12:24 PM INDICATION: Patient age:Male; 51 years old; Reason for study: FB sensation; COMPARISON: None TECHNIQUE: The soft tissues of the neck were imaged in frontal and lateral views. FINDINGS: No radiopaque foreign body The prevertebral soft tissues are unremarkable. There is no evid ence of mass effect or tracheal deviation. No acute osseous abnormality demonstrated. No evidence o f subglottic narrowing. IMPRESSION: 1. No radiopaque foreign body. 2. No significant abnormality identified within the soft tissues of the neck.
[2022-05-17 13:55] VITALS: BP 136/78; PULSE 72; RESP 14; TEMP 98.2
== END 2022-05-17 14:07 | disposition home or self-care (01) ==
LOC: EC 11:31
DX: R13.10 Dysphagia, unspecified (principal); E11.9 Type 2 diabetes mellitus without complications; I10 Essential (primary) hypertension; E78.5 Hyperlipidemia, unspecified; G40.909 Epilepsy, unspecified, not intractable, without status epilepticus; F31.9 Bipolar disorder, unspecified; F41.9 Anxiety disorder, unspecified; F17.200 Nicotine dependence, unspecified, uncomplicated; F12.90 Cannabis use, unspecified, uncomplicated; Z79.84 Long term (current) use of oral hypoglycemic drugs; Z79.899 Other long term (current) drug therapy
CPT/HCPCS: 70360; 99284; 96372; J1610

== ENCOUNTER 2022-06-04 08:31 | Emergency (ER) | payer OTHER ==
[2022-06-04 08:40] VITALS: BP 181/99; PULSE 81; RESP 16; TEMP 98.2
[2022-06-04] MEDS ORDERED: IBUPROFEN 800 MG TAB PO STA (09:04)
--- NOTE | 2022-06-04 09:17 | XR ---
EXAMINATION TYPE: XR chest 2V DATE OF EXAM: 06/04/2022 COMPARISON: Chest x-ray March 01, 2018 HISTORY: Possible ingestion of foreign body. TECHNIQUE: Frontal and lateral views of the chest are obtained. FINDINGS: There is no suspicious new focal air space opacity, pleural effusion, or pneumothorax seen . The cardiac silhouette size is stable and within normal limits. The osseous structures are intac t. No suspicious radiodense foreign body identified. IMPRESSION: No acute cardiopulmonary process. No significant change from prior.
--- NOTE | 2022-06-04 09:19 | XR ---
EXAMINATION TYPE: XR soft tissue neck DATE OF EXAM: 06/04/2022 COMPARISON: Prior soft tissue neck May 17, 2022 HISTORY: Ingested foreign body possible mouse or rat. TECHNIQUE: 2 view soft tissue neck. FINDINGS: No suspicious prevertebral soft tissue swelling. Region of epiglottis and vallecula appears within normal limits. No suspicious narrowing of the subglottic airway on the frontal view. No obvio us radiodense foreign body seen. IMPRESSION: As above. No significant change from prior.
--- NOTE | 2022-06-04 09:59 | ED ---
Abdominal Pain HPI - General Chief Complaint: Abdominal Pain Stated Complaint: swallowed something Time Seen by Provider: 06/04/22 08:44 Source: patient Mode of arrival: ambulatory Limitations: no limitations - History of Present Illness Initial Comments: Patient is a 51-year-old male presents to the emergency department for throat irritation. Patient states he woke up with foreign body sensation. He states there is is a mouse or rat in his throat. Apparently there are rodents in his home patient does not recall any incident where a rodent climbed in his throat but states he feels them moving around in his throat/chest during evaluation. Patient states his throat is irritated. He is not having any trouble swallowing. Despite triage note patient does not have abdominal pain. He denies chest pain and shortness of breath. No fever, chills, nausea, vomiting. Patient was here at the end of April for similar complaint. - Related Data Home Medications Medication Instructions Recorded Confirmed Divalproex [Depakote] 1,000 mg PO HS 03/01/18 05/21/18 buPROPion XL [Wellbutrin XL] 150 mg PO DAILY 03/01/18 05/21/18 Cholecalciferol [Vitamin D3] 5,000 unit PO DAILY 05/21/18 05/21/18 Enalapril [Vasotec] 10 mg PO DAILY 05/21/18 05/21/18 Simvastatin [Zocor] 20 mg PO HS 05/21/18 05/21/18 metFORMIN HCL [Glucophage] 1,000 mg PO BID 05/21/18 05/21/18 Previous Rx's Medication Instructions Recorded Loperamide [Imodium] 2 mg PO QID #15 capsule 08/09/20 Ondansetron Odt [Zofran Odt] 4 mg PO Q8HR PRN #10 tab 08/09/20 Ondansetron Odt [Zofran Odt] 4 mg PO Q8HR PRN 2 Days #6 tab 12/13/20 Allergies Allergy/AdvReac Type Severity Reaction Status Date / Time No Known Allergies Allergy Verified 06/04/22 08:40 Review of Systems ROS Statement: Those systems with pertinent positive or pertinent negative responses have been documented in the HPI. ROS Other: All systems not noted in ROS Statement are negative. Past Medical History Past Medical History: Diabetes Mellitus, Hyperlipidemia, Hypertension, Seizure Disorder History of Any Multi-Drug Resistant Organisms: None Reported Past Surgical History: No Surgical Hx Reported Past Psychological History: Anxiety, Bipolar, Depression Smoking Status: Current every day smoker Past Alcohol Use History: Occasional General Exam Limitations: no limitations General appearance: alert, in no apparent distress Head exam: Present: atraumatic, normocephalic, normal inspection Eye exam: Present: normal appearance, PERRL, EOMI. Absent: scleral icterus, conjunctival injection, periorbital swelling ENT exam: Present: normal oropharynx Neck exam: Present: normal inspection, full ROM. Absent: tenderness, meningismus, lymphadenopathy Respiratory exam: Present: normal lung sounds bilaterally. Absent: respiratory distress, wheezes, rales, rhonchi, stridor Cardiovascular Exam: Present: regular rate, normal rhythm, normal heart sounds. Absent: systolic murmur, diastolic murmur, rubs, gallop, clicks GI/Abdominal exam: Present: soft, normal bowel sounds. Absent: distended, tenderness, guarding, rebound, rigid Neurological exam: Present: alert, oriented X3, CN II-XII intact Psychiatric exam: Present: normal affect, normal mood Skin exam: Present: warm, dry, intact, normal color. Absent: rash Course Vital Signs 06/04/22 08:35 Temperature 98.2 F Pulse Rate 81 Respiratory 16 Rate Blood Pressure 181/99 O2 Sat by Pulse 99 Oximetry Medical Decision Making - Medical Decision Making Was pt. sent in by a medical professional or institution ([facility], [employer], urgent care, hospital, or fdc...) When possible be specific @ -No Did you speak to anyone other than the patient for history (EMS, parent, family, police, friend...)? What history was obtained from this source @ -No Did you review nursing and triage notes (agree or disagree)? Why? @ -I reviewed and agree with nursing and triage notes Were old charts reviewed (outside hosp., previous admission, EMS record, old EKG, old radiological studies, urgent care reports/EKG's, fdc records)? Report findings @ -No old charts were reviewed Differential Diagnosis (chest pain, altered mental status, abdominal pain women, abdominal pain men, vaginal bleeding, weakness, fever, dyspnea, syncope, headache, dizziness, GI bleed, back pain, seizure, CVA, palpatations, mental health)? @ -Foreign body, strep throat, esophageal stricture, hallucinations.This list is not meant to be all-inclusive EKG interpreted by me (3pts min.). @ -As above X-rays interpreted by me (1pt min.). @ -Yes, x-ray of the neck and x-ray negative for acute process CT interpreted by me (1pt min.). @ -None done U/S interpreted by me (1pt. min.). @ -None done What testing was considered but not performed or refused? (CT, X-rays, U/S, labs)? Why? @ -None What meds were considered but not given or refused? Why? @ -None Did you discuss the management of the patient with other professionals (professionals i.e. , PA, COPPER ETCHER, lab, RT, psych nurse, social media project manager, gate technician, teacher, legal compliance officer, rifle case repairer)? Give summary @ -No Was smoking cessation discussed for >3mins.? @ -No Was critical care preformed (if so, how long)? @ -No Were there social determinants of health that impacted care today? How? (Homelessness, low income, unemployed, alcoholism, drug addiction, transportation, low edu. Level, literacy, decrease access to med. care, alf, rehab)? @ -No Was there de-escalation of care discussed even if they declined (Discuss DNR or withdrawal of care, Hospice)? DNR status @ -No What co-morbidities impacted this encounter? (DM, HTN, Smoking, COPD, CAD, Cancer, CVA, ARF, Chemo, Hep., AIDS, mental health diagnosis, sleep apnea, morbid obesity)? @ -None Was patient admitted / discharged? Hospital course, mention meds given and route, prescriptions, significant lab abnormalities, going to OR and other pertinent info. @ -Patient presenting with concern that he swealled a rodent. Physical exam unremarkable. Patient able to swallow secretions and water in the emergency department. Imaging does not show any evidence of foreign body or acute process. Patient updated with results he will need to follow up with his primary care provider. Undiagnosed new problem with uncertain prognosis? @ -No Drug Therapy requiring intensive monitoring for toxicity (Heparin, Nitro, Insulin, Cardizem)? @ -No Were any procedures done? @ -No Diagnosis/symptom? @ -foriegn body sensation in throat, feared condition not demonstrated Acute, or Chronic, or Acute on Chronic? @ -acute Uncomplicated (without systemic symptoms) or Complicated (systemic symptoms)? @ -uncomplicated Side effects of treatment? @ -No Exacerbation, Progression, or Severe Exacerbation? @ -No Poses a threat to life or bodily function? How? (Chest pain, [place], [place], pneumonia, PE, COPD, DKA, ARF, appy, cholecystitis, CVA, Diverticulitis, Homicidal, Suicidal, threat to staff... and all critical care pts) @ -No Dr. Lubin is my attending. Disposition Clinical Impression: Foreign body sensation in throat, Feared condition not demonstrated Disposition: HOME SELF-CARE Condition: Good Instructions (If sedation given, give patient instructions): Soft Tissue Foreign Body (ED) Additional Instructions: Follow-up with primary care provider in one to 2 days. Return to emergency department if you experience new, concerning, worsening symptoms Is patient prescribed a controlled substance at d/c from ED?: No Referrals: [facility] [Primary Care Provider] - 1-2 days
== END 2022-06-04 10:20 | disposition home or self-care (01) ==
LOC: EC 08:31
DX: T17.200A Unspecified foreign body in pharynx causing asphyxiation, initial encounter (principal); Z71.1 Person with feared health complaint in whom no diagnosis is made; E11.9 Type 2 diabetes mellitus without complications; E78.5 Hyperlipidemia, unspecified; F31.9 Bipolar disorder, unspecified; F41.9 Anxiety disorder, unspecified; I10 Essential (primary) hypertension; F17.200 Nicotine dependence, unspecified, uncomplicated; Z79.84 Long term (current) use of oral hypoglycemic drugs; Z79.899 Other long term (current) drug therapy
CPT/HCPCS: 70360; 71046; 99284

== ENCOUNTER 2022-06-04 20:53 | Emergency (ER) | payer OTHER ==
[2022-06-04 21:02] VITALS: BP 152/91; PULSE 102; RESP 18; TEMP 98.4
--- NOTE | 2022-06-04 21:33 | ED ---
General Adult HPI - General Chief complaint: Anxiety Stated complaint: Foreign Object moving in body Time Seen by Provider: 06/04/22 21:07 Source: patient Mode of arrival: ambulatory Limitations: no limitations - History of Present Illness Initial comments: Patient is a 51-year-old male presenting with concern for "there are mice inside me". Patient states he believes his house has a rodent infestation, and he thinks that if several mice crawled inside of his mouth while he was sleeping. Patient states that it feels like they are crawling around his abdomen mainly on the left side and go towards his back. He states that he feels occasional sharp pains that feel as though they're biting him. He states that he can feel one climbing up and down his throat, he compares this sensation to reflux. Patient was seen here earlier for the same complaint, negative soft tissue neck x-ray and chest x-ray. He is having no difficulty breathing or swallowing. No nausea or vomiting. The patient is very anxious during the history. - Related Data Home Medications Medication Instructions Recorded Confirmed Divalproex [Depakote] 1,000 mg PO HS 03/01/18 05/21/18 buPROPion XL [Wellbutrin XL] 150 mg PO DAILY 03/01/18 05/21/18 Cholecalciferol [Vitamin D3] 5,000 unit PO DAILY 05/21/18 05/21/18 Enalapril [Vasotec] 10 mg PO DAILY 05/21/18 05/21/18 Simvastatin [Zocor] 20 mg PO HS 05/21/18 05/21/18 metFORMIN HCL [Glucophage] 1,000 mg PO BID 05/21/18 05/21/18 Previous Rx's Medication Instructions Recorded Loperamide [Imodium] 2 mg PO QID #15 capsule 08/09/20 Ondansetron Odt [Zofran Odt] 4 mg PO Q8HR PRN #10 tab 08/09/20 Ondansetron Odt [Zofran Odt] 4 mg PO Q8HR PRN 2 Days #6 tab 12/13/20 Allergies Allergy/AdvReac Type Severity Reaction Status Date / Time No Known Allergies Allergy Verified 06/04/22 08:40 Review of Systems ROS Statement: Those systems with pertinent positive or pertinent negative responses have been documented in the HPI. ROS Other: All systems not noted in ROS Statement are negative. Past Medical History Past Medical History: Diabetes Mellitus, Hyperlipidemia, Hypertension, Seizure Disorder History of Any Multi-Drug Resistant Organisms: None Reported Past Surgical History: No Surgical Hx Reported Past Psychological History: Anxiety, Bipolar, Depression Smoking Status: Current every day smoker Past Alcohol Use History: Occasional General Exam Limitations: no limitations General appearance: alert, anxious Head exam: Present: atraumatic, normocephalic, normal inspection Eye exam: Present: normal appearance, EOMI. Absent: periorbital swelling Neck exam: Present: normal inspection, full ROM Respiratory exam: Present: normal lung sounds bilaterally. Absent: respiratory distress, wheezes, rales, rhonchi, stridor Cardiovascular Exam: Present: regular rate, normal rhythm, normal heart sounds. Absent: systolic murmur, diastolic murmur, rubs, gallop, clicks GI/Abdominal exam: Present: soft, distended, tenderness (L side). Absent: guarding, rebound, rigid Neurological exam: Present: alert, oriented X3, CN II-XII intact Psychiatric exam: Present: anxious Skin exam: Present: warm, dry, intact, normal color. Absent: rash Course Vital Signs 06/04/22 20:56 Temperature 98.4 F Pulse Rate 102 H Respiratory 18 Rate Blood Pressure 152/91 O2 Sat by Pulse 96 Oximetry Medical Decision Making - Medical Decision Making Was pt. sent in by a medical professional or institution ([facility], [employer]ING TR[employer]IVER, urgent care, hospital, or half-way...) When possible be specific @ -No Did you speak to anyone other than the patient for history (EMS, parent, family, police, friend...)? What history was obtained from this source @ -No Did you review nursing and triage notes (agree or disagree)? Why? @ -I reviewed and agree with nursing and triage notes Were old charts reviewed (outside hosp., previous admission, EMS record, old EKG , old radiological studies, urgent care reports/EKG's, half-way records)? Report findings @ -Soft tissue neck x-ray and chest x-ray from earlier today are reviewed Differential Diagnosis (chest pain, altered mental status, abdominal pain women, abdominal pain men, vaginal bleeding, weakness, fever, dyspnea, syncope, headache, dizziness, GI bleed, back pain, seizure, CVA, palpatations, mental health, musculoskeletal)? @ -Differential includes anxiety, esophageal foreign body, bowel obstruction, GERD, this is not an all inclusive list EKG interpreted by me (3pts min.). @ -As above X-rays interpreted by me (1pt min.). @ -KUB x-ray shows no acute process. On my interpretation there appears to be a mild amount of constipation in the left lower quadrant. CT interpreted by me (1pt min.). @ -None done U/S interpreted by me (1pt. min.). @ -None done What testing was considered but not performed or refused? (CT, X-rays, U/S, labs)? Why? @ -None What meds were considered but not given or refused? Why? @ -None Did you discuss the management of the patient with other professionals (pro fessionals i.e. , PA, CONCRETE MIXING TRUCK DRIVER, lab, RT, psych nurse, social welfare research worker, it director, teacher, hydrographical technical officer, case finisher)? Give summary @ -No Was smoking cessation discussed for >3mins.? @ -No Was critical care preformed (if so, how long)? @ -No Were there social determinants of health that impacted care today? How? (Homelessness, low income, unemployed, alcoholism, drug addiction, transportation, low edu. Level, literacy, decrease access to med. care, [facility], rehab)? @ -No Was there de-escalation of care discussed even if they declined (Discuss DNR or withdrawal of care, Hospice)? DNR status @ -No What co-morbidities impacted this encounter? (DM, HTN, Smoking, COPD, CAD, Cancer, CVA, ARF, Chemo, Hep., AIDS, mental health diagnosis, sleep apnea, morbid obesity)? @ -None Was patient admitted / discharged? Hospital course, mention meds given and route, prescriptions, significant lab abnormalities, going to OR and other pertinent info. @ -Patient is a 51-year-old male presenting with concerns for mice that are crawling around in his throat and his abdomen. Patient was here earlier today for same complaints. I explained to the patient basic anatomy and how this would not be possible. Patient was able to understand my logic. On physical examination he does have some left-sided abdominal tenderness. He is having no difficulty breathing or swallowing. KUB x-ray shows mild constipation, no acute process. Urine shows trace blood, no dysuria, urgency, frequency. Urine toxicology is negative. I explained to the patient these findings. I also spoke with him about anxiety. Patient states that he feels relieved understanding that there cannot be placed crawling around inside of him. Patient does follow with a PCP and is able to schedule follow-up appointment regarding his anxiety. Also give the patient material and constipation. Follow- up with PCP. Report back to ER with any new or worsening symptoms. Discussed return parameters and answered all questions. Patient conveyed verbal understanding and agreed to the plan. I discussed this case in detail with my attending Dr. Payne Undiagnosed new problem with uncertain prognosis? @ -No Drug Therapy requiring intensive monitoring for toxicity (Heparin, Nitro, Insulin, Cardizem)? @ -No Were any procedures done? @ -No Diagnosis/symptom? @ -Anxiety Acute, or Chronic, or Acute on Chronic? @ -Acute Uncomplicated (without systemic symptoms) or Complicated (systemic symptoms)? @ -Uncomplicated Side effects of treatment? @ -No Exacerbation, Progression, or Severe Exacerbation? @ -No Poses a threat to life or bodily function? How? (Chest pain, [place], [place], pneumonia, PE, COPD, DKA, ARF, appy, cholecystitis, CVA, Diverticulitis, Homicidal, Suicidal, threat to staff... and all critical care pts) @ -No - Lab Data Lab Results 06/04/22 Range/Units 21:44 Urine Color Light Yellow Urine Appearance Clear (Clear) Urine pH 5.0 (5.0-8.0) Ur Specific [place] 1.009 (1.001-1.035) Urine Protein Trace H (Negative) Urine Glucose (UA) Negative (Negative) Urine Ketones Negative (Negative) Urine Blood Trace H (Negative) Urine Nitrite Negative (Negative) Urine Bilirubin Negative (Negative) Urine Urobilinogen <2.0 (<2.0) mg/dL Ur Leukocyte Esterase Negative (Negative) Urine RBC 7 H (0-5) /hpf Urine WBC <1 (0-5) /hpf Urine Mucus Rare H (None) /hpf Urine Opiates Screen Not Detected (NotDetected) Ur Oxycodone Screen Not Detected (NotDetected) Urine Methadone Screen Not Detected (NotDetected) Ur Propoxyphene Screen Not Detected (NotDetected) Ur Barbiturates Screen Not Detected (NotDetected) U Tricyclic Antidepress Not Detected (NotDetected) Ur Phencyclidine Scrn Not Detected (NotDetected) Ur Amphetamines Screen Not Detected (NotDetected) U Methamphetamines Scrn Not Detected (NotDetected) U Benzodiazepines Scrn Not Detected (NotDetected) Urine Cocaine Screen Not Detected (NotDetected) U Marijuana (THC) Screen Not Detected (NotDetected) Disposition Clinical Impression: Constipation, Anxiety Disposition: HOME SELF-CARE Condition: Good Instructions (If sedation given, give patient instructions): Constipation (ED), High Fiber Diet (ED), Generalized Anxiety Disorder (ED) Additional Instructions: Follow-up with PCP. Report back to ER with any new or worsening symptoms. Is patient prescribed a controlled substance at d/c from ED?: No Referrals: [facility] [Primary Care Provider] - 1-2 days Time of Disposition: 22:32
--- NOTE | 2022-06-04 22:00 | XR ---
EXAMINATION TYPE: XR KUB DATE OF EXAM: 06/04/2022 9:50 PM INDICATION: Patient age:Male; 51 years old; Reason for study: constipation; COMPARISON: None. TECHNIQUE: One radiographic view of the abdomen was obtained. FINDINGS: The bowel gas pattern is nonspecific without dilated loops of small or large bowel. There i s no evidence for organomegaly or pneumoperitoneum. The osseous structures are intact. No abnormal calcifications are present. Fecal material and gas are demonstrated throughout the colon and rectum. IMPRESSION: Nonspecific bowel gas pattern without radiographic evidence for acute process.
[2022-06-04 22:11] LABS: Appearance,Urine Clear (Clear); Bilirubin,Urine Negative (Negative); Blood,Urine Trace (Negative); Color,Urine Light Yellow; Glucose,Urine (UA) Negative (Negative); Ketones,Urine Negative (Negative); Leukocyte Esterase,Urine Negative (Negative); Mucus,Urine Rare /hpf; Nitrite,Urine Negative (Negative); Protein,Urine Trace (Negative); RBC,Urine 7 /hpf (0-5); Specific Gravity,Urine 1.009 (1.001-1.035); Urobilinogen,Urine <2.0 mg/dL (<2.0); WBC,Urine <1 /hpf (0-5)
[2022-06-04 22:13] LABS: Amphetamine Screen,Urine Not Detected (NotDetected); Barbiturate Screen,Urine Not Detected (NotDetected); Benzodiazepines Screen,Urine Not Detected (NotDetected); Cocaine Screen,Urine Not Detected (NotDetected); Methadone Screen, Urine Not Detected (NotDetected); Opiate Screen,Urine Not Detected (NotDetected); Oxycodone Screen, Urine Not Detected (NotDetected); Phencyclidine Screen,Urine Not Detected (NotDetected); Tricyclic Antidepressant,Urine Not Detected (NotDetected); Urn Cannabinoid Scrn Not Detected (NotDetected)
== END 2022-06-04 22:42 | disposition home or self-care (01) ==
LOC: EC 20:53
DX: K59.00 Constipation, unspecified (principal); F41.9 Anxiety disorder, unspecified; E11.9 Type 2 diabetes mellitus without complications; E78.5 Hyperlipidemia, unspecified; I10 Essential (primary) hypertension; F31.9 Bipolar disorder, unspecified; F17.200 Nicotine dependence, unspecified, uncomplicated; Z79.84 Long term (current) use of oral hypoglycemic drugs; Z79.899 Other long term (current) drug therapy
CPT/HCPCS: 74018; 80306; 81001; 99284

== ENCOUNTER 2022-06-12 23:32 | Emergency (ER) | payer OTHER ==
[2022-06-13] MEDS ORDERED: CYCLOBENZAPRINE 10 MG TAB PO STA (02:10)
--- NOTE | 2022-06-13 02:15 | ED ---
Neck Injury/Pain HPI - General Chief Complaint: Neck Pain/Injury Stated Complaint: neck pain Time Seen by Provider: 06/13/22 02:02 Source: patient, RN notes reviewed, old records reviewed Mode of arrival: ambulatory Limitations: no limitations - History of Present Illness Initial Comments: Nontoxic-appearing 51-year-old male presents ambulatory with complaints of right-sided neck pain that came on while he was watching TV around 11:00pm. States that he feels like it's a muscle on the right side and is worse with palpation. Patient denies any fevers. No nausea vomiting or diarrhea. No dizziness or vision changes. Does have a history of diabetes hypertension and seizure disorder. MD Complaint: neck pain -: hour(s) (3) Place: home Radiation: right lateral Severity scale (1-10): 7 Quality: other (tight) Consistency: constant Improves With: none Worsens With: other (palpation) Associated Symptoms: none Treatments Prior to Arrival: none - Related Data Home Medications Medication Instructions Recorded Confirmed Divalproex [Depakote] 1,000 mg PO HS 03/01/18 05/21/18 buPROPion XL [Wellbutrin XL] 150 mg PO DAILY 03/01/18 05/21/18 Cholecalciferol [Vitamin D3] 5,000 unit PO DAILY 05/21/18 05/21/18 Enalapril [Vasotec] 10 mg PO DAILY 05/21/18 05/21/18 Simvastatin [Zocor] 20 mg PO HS 05/21/18 05/21/18 metFORMIN HCL [Glucophage] 1,000 mg PO BID 05/21/18 05/21/18 Previous Rx's Medication Instructions Recorded Loperamide [Imodium] 2 mg PO QID #15 capsule 08/09/20 Ondansetron Odt [Zofran Odt] 4 mg PO Q8HR PRN #10 tab 08/09/20 Ondansetron Odt [Zofran Odt] 4 mg PO Q8HR PRN 2 Days #6 tab 12/13/20 Allergies Allergy/AdvReac Type Severity Reaction Status Date / Time No Known Allergies Allergy Verified 06/12/22 23:44 Review of Systems ROS Statement: Those systems with pertinent positive or pertinent negative responses have been documented in the HPI. ROS Other: All systems not noted in ROS Statement are negative. Past Medical History Past Medical History: Diabetes Mellitus, Hyperlipidemia, Hypertension, Seizure Disorder History of Any Multi-Drug Resistant Organisms: None Reported Past Surgical History: No Surgical Hx Reported Past Psychological History: Anxiety, Bipolar, Depression Smoking Status: Current every day smoker Past Alcohol Use History: Occasional General Exam Limitations: no limitations General appearance: alert, in no apparent distress Head exam: Present: atraumatic, normocephalic, normal inspection Eye exam: Present: normal appearance. Absent: scleral icterus, conjunctival injection, periorbital swelling, periorbital tenderness ENT exam: Present: normal oropharynx, mucous membranes moist, TM's normal bilaterally Expanded Mouth exam: Present: tongue normal, tongue elevation. Absent: drooling, trismus, muffled voice Throat exam: normal inspection. negative: tonsillar erythema, tonsillar exudate, R peritonsillar mass, L peritonsillar mass Neck exam: Present: tenderness (Right lateral), full ROM. Absent: meningismus, lymphadenopathy Respiratory exam: Present: normal lung sounds bilaterally. Absent: respiratory distress, accessory muscle use Cardiovascular Exam: Present: regular rate GI/Abdominal exam: Present: soft Extremities exam: Present: normal capillary refill. Absent: pedal edema Neurological exam: Present: alert, oriented X3, CN II-XII intact, normal gait Psychiatric exam: Present: normal affect, normal mood Skin exam: Present: warm, dry, normal color. Absent: cyanosis, diaphoretic, petechiae, pallor Course Vital Signs 06/12/22 06/13/22 23:39 02:32 Temperature 98 F 98.2 F Pulse Rate 84 70 Respiratory 18 16 Rate Blood Pressure 143/98 125/88 O2 Sat by Pulse 98 99 Oximetry Medical Decision Making - Medical Decision Making Patient has been seen multiple times in the past month for neck pain. Patient was seen twice on June 04 for possible swallowed foreign body in throat pain. He was also seen May 17 had soft tissue neck performed that was negative. Soft tissue neck x-ray was performed again on June 04 again with no significant change or abnormality. States that today the pain is right lateral side and came on at 11:00pm while watching TV and feels like a tight muscle. There is no evidence of swelling or lymphadenopathy. Denies any trauma. No carotid bruits, no evidence of rash or cellulitis. Patient denies any ear pain or drainage. No dental pain. Denies any fevers. Patient has no focal neurological deficits. Is ambulatory with steady gait. Pain is worse with palpation along the right lateral sternocleidomastoid muscle. Patient is willing to try Flexeril and continue with Tylenol Motrin for pain. Patient does have history of diabetes, seizure disorder, hypertension, hyperlipidemia, anxiety, bipolar depression Case discussed with Dr. Corea Was pt. sent in by a medical professional or institution (, VANDANA, [employer] FORMING MACHINE OPERATOR, urgent care, hospital, or intermediate...) When possible be specific @ -No Did you speak to anyone other than the patient for history (EMS, parent, family, police, friend...)? What history was obtained from this source @ -No Did you review nursing and triage notes (agree or disagree)? Why? @ -I reviewed and agree with nursing and triage notes Were old charts reviewed (outside hosp., previous admission, EMS record, old EKG, old radiological studies, urgent care reports/EKG's, intermediate records)? Report findings @ -Yes imaging reports and previous ER visit Differential Diagnosis (chest pain, altered mental status, abdominal pain women, abdominal pain men, vaginal bleeding, weakness, fever, dyspnea, syncope, headache, dizziness, GI bleed, back pain, seizure, CVA, palpatations, mental health, musculoskeletal)? @ -Musculoskeletal pain, cellulitis, shingles, otitis media, dental abscess, this is not all inclusive list EKG interpreted by me (3pts min.). @ -n/a X-rays interpreted by me (1pt min.). @ -None done CT interpreted by me (1pt min.). @ -None done U/S interpreted by me (1pt. min.). @ -None done What testing was considered but not performed or refused? (CT, X-rays, U/S, labs)? Why? @ -None What meds were considered but not given or refused? Why? @ -None Did you discuss the management of the patient with other professionals (professionals i.e. VANDANA Leon, MATZO FORMING MACHINE OPERATOR, lab, RT, psych nurse, adoption social worker, skin care therapist, teacher, safety and security officer, immigration case worker)? Give summary @ -No Was smoking cessation discussed for >3mins.? @ -No Was critical care preformed (if so, how long)? @ -No Were there social determinants of health that impacted care today? How? (Homelessness, low income, unemployed, alcoholism, drug addiction, transportation, low edu. Level, literacy, decrease access to med. care, prison, rehab)? @ -No Was there de-escalation of care discussed even if they declined (Discuss DNR or withdrawal of care, Hospice)? DNR status @ -No What co-morbidities impacted this encounter? (DM, HTN, Smoking, COPD, CAD, Cancer, CVA, ARF, Chemo, Hep., AIDS, mental health diagnosis, sleep apnea, morbid obesity)? @ -Diabetes, hypertension, seizure disorder, hyperlipidemia, anxiety, bipolar depression Was patient admitted / discharged? Hospital course, mention meds given and route, prescriptions, significant lab abnormalities, going to OR and other pertinent info. @ -Discharged Undiagnosed new problem with uncertain prognosis? @ -No Drug Therapy requiring intensive monitoring for toxicity (Heparin, Nitro, Insulin, Cardizem)? @ -No Were any procedures done? @ -No Diagnosis/symptom? @ -Musculoskeletal neck pain Acute, or Chronic, or Acute on Chronic? @ -Acute Uncomplicated (without systemic symptoms) or Complicated (systemic symptoms)? @ -Uncomplicated Side effects of treatment? @ -No Exacerbation, Progression, or Severe Exacerbation? @ -No Poses a threat to life or bodily function? How? (Chest pain, [place], [place], pneumonia, PE, COPD, DKA, ARF, appy, cholecystitis, CVA, Diverticulitis, Homicidal, Suicidal, threat to staff... and all critical care pts) @ -No Disposition Clinical Impression: Strain of neck muscle Disposition: HOME SELF-CARE Condition: Good Instructions (If sedation given, give patient instructions): Cervical Strain (ED) Additional Instructions: Tylenol and/or Motrin as needed for any pain or discomfort. You can use warm compresses and topical pain relievers like BenGay, icy hot or capsaicin creams. Follow-up with your primary care doctor this week. Is patient prescribed a controlled substance at d/c from ED?: No Referrals: [facility] [Primary Care Provider] - 1-2 days Time of Disposition: 02:14
[2022-06-13 02:33] VITALS: BP 125/88; PULSE 70; RESP 16; TEMP 98.2
== END 2022-06-13 02:33 | disposition home or self-care (01) ==
LOC: EC 23:32
DX: S16.1XXA Strain of muscle, fascia and tendon at neck level, initial encounter (principal); F17.200 Nicotine dependence, unspecified, uncomplicated; E11.9 Type 2 diabetes mellitus without complications; I10 Essential (primary) hypertension; E78.5 Hyperlipidemia, unspecified; G40.909 Epilepsy, unspecified, not intractable, without status epilepticus; F31.9 Bipolar disorder, unspecified; F41.9 Anxiety disorder, unspecified; Z79.84 Long term (current) use of oral hypoglycemic drugs; Z79.899 Other long term (current) drug therapy; X58.XXXA Exposure to other specified factors, initial encounter; Y92.009 Unspecified place in unspecified non-institutional (private) residence as the place of occurrence of the external cause
CPT/HCPCS: 99283

== ENCOUNTER 2024-01-07 05:20 | Emergency (ER) | payer OTHER ==
[2024-01-07 05:29] VITALS: RESP 16; TEMP 98.5
--- NOTE | 2024-01-07 06:21 | ED ---
Animal Bite HPI - General Stated Complaint: Animal bite Time Seen by Provider: 01/07/24 05:40 Source: patient, RN notes reviewed Mode of arrival: ambulatory Limitations: no limitations - History of Present Illness Initial Comments: 53 year old pale presents to the emergency department with chief complaint of pain to right lateral ankle and leg pain due what he belives as to being bitten by a rat. He states that this morning he was sleeping in a recliner with his boots on and felt a pinch on the lateral aspect of his right ankle. He states that there are rats where he lives, however he has never been bitten by one until today. He did not see the rat bite him and he states that there is no other animals or insects where he lives and that this is never happened before. He reports pain to the lateral ankle plantar surface of his foot radiating up to his knee. He also states that it is swollen as compared to his other leg. He does endorse a history of diabetes that is well controlled with metformin but denies any history of neuropathy. He denies redness, drainage, ulcerations or punctures. He denies recent trauma or injury to back, no numbness or tingling, no saddle anesthesia. Denies shortness of breath, chest pain, or other complaints. - Related Data Home Medications Medication Instructions Recorded Confirmed buPROPion XL [Wellbutrin XL] 150 mg PO DAILY 03/01/18 11/11/22 Enalapril [Vasotec] 10 mg PO DAILY 05/21/18 11/11/22 Simvastatin [Zocor] 20 mg PO HS 05/21/18 11/11/22 metFORMIN HCL [Glucophage] 1,000 mg PO BID 05/21/18 11/11/22 Cholecalciferol [Vitamin D3 (125 125 mcg PO DAILY 11/11/22 11/11/22 Mcg = 5000 Iu)] Divalproex ER [Depakote ER] 1,000 mg PO HS 11/11/22 11/11/22 Famotidine [Pepcid] 20 mg PO BID 11/11/22 11/11/22 Fenofibrate [Lofibra] 54 mg PO DAILY 11/11/22 11/11/22 sitaGLIPtin [Januvia] 100 mg PO DAILY 11/11/22 11/11/22 Previous Rx's Medication Instructions Recorded Acetaminophen Tab [Tylenol] 1,000 mg PO Q6HR PRN #30 tablet 11/13/22 Amoxic-Pot Clav 875-125Mg 1 tab PO BID 7 Days #14 tab 11/13/22 [Augmentin 875-125] oxyCODONE HCL [OxyIR] 5 mg PO Q6H PRN 3 Days #12 tab 11/13/22 Allergies Allergy/AdvReac Type Severity Reaction Status Date / Time No Known Allergies Allergy Verified 01/07/24 05:30 Review of Systems ROS Statement: Those systems with pertinent positive or pertinent negative responses have been documented in the HPI. ROS Other: All systems not noted in ROS Statement are negative. Past Medical History Past Medical History: Diabetes Mellitus, Hyperlipidemia, Hypertension, Seizure Disorder History of Any Multi-Drug Resistant Organisms: None Reported Past Surgical History: No Surgical Hx Reported Past Psychological History: Anxiety, Bipolar, Depression Smoking Status: Current every day smoker Past Alcohol Use History: Occasional Past Drug Use History: None Reported General Exam Limitations: no limitations General appearance: alert, in no apparent distress Head exam: Present: atraumatic, normocephalic, normal inspection Eye exam: Present: normal appearance, PERRL, EOMI. Absent: scleral icterus, con junctival injection, periorbital swelling ENT exam: Present: normal exam, mucous membranes moist Neck exam: Present: normal inspection. Absent: tenderness, meningismus, lymphadenopathy Respiratory exam: Present: normal lung sounds bilaterally. Absent: respiratory distress, wheezes, rales, rhonchi, stridor Cardiovascular Exam: Present: regular rate, normal rhythm, normal heart sounds. Absent: systolic murmur, diastolic murmur, rubs, gallop, clicks GI/Abdominal exam: Present: soft, normal bowel sounds. Absent: distended, tenderness, guarding, rebound, rigid Extremities exam: Present: normal inspection, full ROM, normal capillary refill. Absent: tenderness, pedal edema, joint swelling, calf tenderness Back exam: Present: normal inspection Neurological exam: Present: alert, oriented X3, CN II-XII intact Psychiatric exam: Present: normal affect, normal mood Skin exam: Present: warm, dry, intact, normal color. Absent: rash Course Vital Signs 01/07/24 05:24 Temperature 98.5 F Pulse Rate 102 H Respiratory 16 Rate Blood Pressure 150/102 O2 Sat by Pulse 98 Oximetry Medical Decision Making - Medical Decision Making Was pt. sent in by a medical professional or institution (VANDANA Leon, LIQUEFIER, urgent care, hospital, or half-way...) When possible be specific @ -No Did you speak to anyone other than the patient for history (EMS, parent, family, police, friend...)? What history was obtained from this source @ -No Did you review nursing and triage notes (agree or disagree)? Why? @ -I reviewed and agree with nursing and triage notes Were old charts reviewed (outside hosp., previous admission, EMS record, old EKG, old radiological studies, urgent care reports/EKG's, half-way records)? Report findings @ -No old charts were reviewed Differential Diagnosis (chest pain, altered mental status, abdominal pain women, abdominal pain men, vaginal bleeding, weakness, fever, dyspnea, syncope, headache, dizziness, GI bleed, back pain, seizure, CVA, palpatations, mental health, musculoskeletal)? @ -Leg pain, radicular pain, neuropathy EKG interpreted by me (3pts min.). @ -None X-rays interpreted by me (1pt min.). @ -None done CT interpreted by me (1pt min.). @ -None done U/S interpreted by me (1pt. min.). @ -None done What testing was considered but not performed or refused? (CT, X-rays, U/S, labs)? Why? @ -None What meds were considered but not given or refused? Why? @ -None Did you discuss the management of the patient with other professionals (professionals i.e. VANDANA Leon, LIQUEFIER, lab, RT, psych nurse, social media campaign manager, clinical esthetician, teacher, civil preparedness training officer, patient case coordinator)? Give summary @ -No Was smoking cessation discussed for >3mins.? @ -No Was critical care preformed (if so, how long)? @ -No Were there social determinants of health that impacted care today? How? (Homelessness, low income, unemployed, alcoholism, drug addiction, transportation, low edu. Level, literacy, decrease access to med. care, correction, rehab)? @ -No Was there de-escalation of care discussed even if they declined (Discuss DNR or withdrawal of care, Hospice)? DNR status @ -No What co-morbidities impacted this encounter? (DM, HTN, Smoking, COPD, CAD, Cancer, CVA, ARF, Chemo, Hep., AIDS, mental health diagnosis, sleep apnea, morbid obesity)? @ -Diabetes Was patient admitted / discharged? Hospital course, mention meds given and route, prescriptions, significant lab abnormalities, going to OR and other pertinent info. @ -Discharge patient has no break in skin, there is no redness no obvious signs of a bite his symptoms are more consistent with a radicular type pain, leg pain. We discussed close follow-up he will take anti-inflammatories. Patient is discharged in stable condition. Undiagnosed new problem with uncertain prognosis? @ -No Drug Therapy requiring intensive monitoring for toxicity (Heparin, Nitro, Insulin, Cardizem)? @ -No Were any procedures done? @ -No Diagnosis/symptom? @ -Leg pain Acute, or Chronic, or Acute on Chronic? @ -Acute Uncomplicated (without systemic symptoms) or Complicated (systemic symptoms)? @ -Uncomplicated Side effects of treatment? @ -No Exacerbation, Progression, or Severe Exacerbation? @ -No Poses a threat to life or bodily function? How? (Chest pain, [place], [place], pneumonia, PE, COPD, DKA, ARF, appy, cholecystitis, CVA, Diverticulitis, Homicidal, Suicidal, threat to staff... and all critical care pts) @ -No Disposition Clinical Impression: Leg pain Disposition: HOME SELF-CARE Condition: Good Instructions (If sedation given, give patient instructions): Leg Pain (ED) Additional Instructions: Please return to the Emergency Department if symptoms worsen or any other concerns. Is patient prescribed a controlled substance at d/c from ED?: No Referrals: [facility] [Primary Care Provider] - 1-2 days Time of Disposition: 06:45
[2024-01-07 06:51] VITALS: BP 129/84; PULSE 91
== END 2024-01-07 06:52 | disposition home or self-care (01) ==
LOC: EC 05:20
DX: M25.561 Pain in right knee (principal); E11.9 Type 2 diabetes mellitus without complications; F17.200 Nicotine dependence, unspecified, uncomplicated; Z79.84 Long term (current) use of oral hypoglycemic drugs; W53.11XA Bitten by rat, initial encounter
CPT/HCPCS: 99283

== ENCOUNTER 2024-05-17 20:45 | Inpatient (IN) | payer MEDICAID, OTHER ==
[2024-05-17] MEDS: SODIUM CHLORIDE 0.9% 1,000 ML IV ONE ×2 (22:11→23:24)
[2024-05-17] MEDS: KETOROLAC 15 MG/ML 1 ML VIAL IVP STA (22:12)
[2024-05-17] MEDS: PANTOPRAZOLE 40 MG/10 ML VIAL IVP STA (22:14)
[2024-05-17] MEDS: ONDANSETRON 4 MG/2 ML VIAL IVP STA (22:15)
--- NOTE | 2024-05-17 22:27 | ED ---
General Adult HPI - General Chief complaint: Nausea/Vomiting/Diarrhea Stated complaint: abd pain, vomitting Time Seen by Provider: 05/17/24 21:20 Source: patient, RN notes reviewed, old records reviewed Mode of arrival: ambulatory - History of Present Illness Initial comments: Patient is a 53-year-old male who presents emergency department for abdominal discomfort, nausea, vomiting. Patient is also complaining of depression. States has been somewhat ongoing chronically. Endorses intermittent thoughts when to hurt himself and others. Denies any obvious hallucinations at this time. Denies any drug use. States he ate steak earlier today when he began having nausea, vomiting as well as diarrhea. Had 1-2 episodes of both diarrhea and nausea and vomiting. Denies any hematemesis. Denies any melena or hematochezia. Denies any fevers or chills or cough. Has no urinary complaints. Does have a history of an appendectomy. Presents for further evaluation at this time. Patient also history of hypertension, hyperlipidemia, diabetes. Denies any chest pain. - Related Data Home Medications Medication Instructions Recorded Confirmed buPROPion XL [Wellbutrin XL] 150 mg PO DAILY 03/01/18 11/11/22 Enalapril [Vasotec] 10 mg PO DAILY 05/21/18 11/11/22 Simvastatin [Zocor] 20 mg PO HS 05/21/18 11/11/22 metFORMIN HCL [Glucophage] 1,000 mg PO BID 05/21/18 11/11/22 Cholecalciferol [Vitamin D3 (125 125 mcg PO DAILY 11/11/22 11/11/22 Mcg = 5000 Iu)] Divalproex ER [Depakote ER] 1,000 mg PO HS 11/11/22 11/11/22 Famotidine [Pepcid] 20 mg PO BID 11/11/22 11/11/22 Fenofibrate [Lofibra] 54 mg PO DAILY 11/11/22 11/11/22 sitaGLIPtin [Januvia] 100 mg PO DAILY 11/11/22 11/11/22 Previous Rx's Medication Instructions Recorded Acetaminophen Tab [Tylenol] 1,000 mg PO Q6HR PRN #30 tablet 11/13/22 Amoxic-Pot Clav 875-125Mg 1 tab PO BID 7 Days #14 tab 11/13/22 [Augmentin 875-125] oxyCODONE HCL [OxyIR] 5 mg PO Q6H PRN 3 Days #12 tab 11/13/22 Allergies Allergy/AdvReac Type Severity Reaction Status Date / Time No Known Allergies Allergy Verified 01/07/24 05:30 Review of Systems ROS Statement: Those systems with pertinent positive or pertinent negative responses have been documented in the HPI. Review of Systems: CONST: Denies fever EYES: Denies blurry vision ENT: Denies nasal congestion C/V: Denies Chest pain RESP: Denies shortness of breath GI: Endorses generalized abdominal discomfort : Denies dysuria SKIN: Denies rash. MSK: Denies joint pain. NEURO: Denies headache ROS Other: All systems not noted in ROS Statement are negative. Past Medical History Past Medical History: Diabetes Mellitus, Hyperlipidemia, Hypertension, Seizure Disorder History of Any Multi-Drug Resistant Organisms: None Reported Past Surgical History: No Surgical Hx Reported Past Psychological History: Anxiety, Bipolar, Depression Smoking Status: Former smoker Past Alcohol Use History: None Reported Past Drug Use History: None Reported General Exam - General Exam Comments Initial Comments: General: Appears in no acute distress. HEAD: Normal with no signs of head trauma. EYES: PERRLA, EOMI, conjunctiva normal, no discharge. ENT: Hearing grossly intact, normal oropharynx. RESPIRATORY: Clear breath sounds bilaterally. No wheezes, rales, or rhonchi. C/V: Regular rate and rhythm. S1 and S2 auscultated, no edema, peripheral pulses 2+ and intact throughout ABD: Left-sided abdominal discomfort on palpation. No guarding or rebound tenderness. No peritoneal signs. EXT: Normal range of motion, no obvious deformity SKIN: No rashes or lesions observed on exposed skin. NEURO: Alert oriented x 4. Course Vital Signs 05/17/24 05/17/24 20:59 23:19 Temperature 98.5 F Pulse Rate 119 H 101 H Respiratory 18 17 Rate Blood Pressure 125/88 137/93 O2 Sat by Pulse 100 100 Oximetry Medical Decision Making - Medical Decision Making Was pt. sent in by a medical professional or institution (, PA, PIPE STRAIGHTENER, urgent care, hospital, or half-way...) When possible be specific @ -No Did you speak to anyone other than the patient for history (EMS, parent, family, police, friend...)? What history was obtained from this source @ -No Did you review nursing and triage notes (agree or disagree)? Why? @ -I reviewed and agree with nursing and triage notes Were old charts reviewed (outside hosp., previous admission, EMS record, old EKG, old radiological studies, urgent care reports/EKG's, half-way records)? Report findings @ -No old charts were reviewed Differential Diagnosis (chest pain, altered mental status, abdominal pain women, abdominal pain men, vaginal bleeding, weakness, fever, dyspnea, syncope, headache, dizziness, GI bleed, back pain, seizure, CVA, palpatations, mental health, musculoskeletal)? @ -Differential Abdominal Pain Men: Appendicitis, cholecystitis, diverticulosis, ischemic bowel, pancreatitis, hepatitis, UTI, gastroenteritis, AAA, incarcerated hernia, bowel obstruction, constipation, inflammatory bowel, hepatitis, peptic ulcer disease, splenic infarction, perforated viscus, testicular torsion, this is not meant to be an all-inclusive list Differential Mental Health Depression, anxiety, bipolar, psychosis, schizophrenia, borderline personality, situational depression, adjustment disorder, behavioral disorder, brain tumor, malingering, substance abuse, encephalopathy, medication reaction, dementia, hypothyroidism, degenerative neurologic disorder, lupus.... This is not meant to be all-inclusive list EKG interpreted by me (3pts min.). @ -As above X-rays interpreted by me (1pt min.). @ -None done CT interpreted by me (1pt min.). @ -No obvious acute intra-abdominal process. U/S interpreted by me (1pt. min.). @ -None done What testing was considered but not performed or refused? (CT, X-rays, U/S, labs)? Why? @ -None What meds were considered but not given or refused? Why? @ -None Did you discuss the management of the patient with other professionals (professionals i.e. , PA, PIPE STRAIGHTENER, lab, RT, psych nurse, social worker school, divorce lawyer, teacher, aviation tactical readiness officer, case specialist)? Give summary @ -EPS notified of the consult. Was smoking cessation discussed for >3mins.? @ -No Was critical care preformed (if so, how long)? @ -No Were there social determinants of health that impacted care today? How? (Homelessness, low income, unemployed, alcoholism, drug addiction, transportation, low edu. Level, literacy, decrease access to med. care, retirement, rehab)? @ -No Was there de-escalation of care discussed even if they declined (Discuss DNR or withdrawal of care, Hospice)? DNR status @ -No What co-morbidities impacted this encounter? (DM, HTN, Smoking, COPD, CAD, Cancer, CVA, ARF, Chemo, Hep., AIDS, mental health diagnosis, sleep apnea, morbid obesity)? @ -Mental health disease Was patient admitted / discharged? Hospital course, mention meds given and route, prescriptions, significant lab abnormalities, going to OR and other pertinent info. @ -Patient presents emergency department with sudden onset nausea vomiting and diarrhea. States she is still having some left-sided abdominal discomfort after the episode. Was sudden onset this evening after eating steak. We will obtain abdominal labs as well as CT abdomen pelvis due to his age. Patient will receive IV fluids, Protonix, Zofran, Toradol. Patient is endorsing worsening depression as well as some nonspecific suicidal ideations. Did discuss with the patient and we will also make him a psych evaluation. Patient placed in whitman scrubs. Alcohol level was sent. He is cooperative. Sitter and suicide precautions ordered. Vital signs within acceptable limits. EKG shows no signs of acute ischemia.Patient's laboratory studies returned remarkable for a lactic acidosis of 3.7. The remainder the labs unremarkable. CT abdomen pelvis revealed no obvious acute intra-abdominal process. After the patient. He has no symptoms at this time. Will repeat lactic acid after second liter fluid bolus. Repeat lactic acid essentially normal at 2.1. Patient remains asymptomatic and tolerating oral intake. Lactic acidosis likely secondary to dehydration from the diarrhea and vomiting episode. I discussed results with patient. At this time, patient is medically cleared for evaluation by psychiatry. Disposition pending psychiatric evaluation. EPS notified the consult. Patient was in agreement this plan. EPS evaluated the patient and after discussion with psychiatry, determined that he does meet inpatient criteria. Patient will be admitted to inpatient psychiatry. Undiagnosed new problem with uncertain prognosis? @ -No Drug Therapy requiring intensive monitoring for toxicity (Heparin, Nitro, Insulin, Cardizem)? @ -No Were any procedures done? @ -No Diagnosis/symptom? @ -Dehydration secondary to vomiting and diarrhea. Suicidal ideations, depression Acute, or Chronic, or Acute on Chronic? @ -Acute Uncomplicated (without systemic symptoms) or Complicated (systemic symptoms)? @ -Complicated Side effects of treatment? @ -None Exacerbation, Progression, or Severe Exacerbation] @ -No Poses a threat to life or bodily function? @ -Potentially, yes - Lab Data Result diagrams: 05/17/24 22:10 05/17/24 22:10 Lab Results 05/17/24 05/17/24 05/17/24 Range/Units 22:05 22:05 22:10 WBC 7.2 (3.8-10.6) k/uL RBC 5.45 (4.30-5.90) m/uL Hgb 14.3 (13.0-17.5) gm/dL Hct 45.2 (39.0-53.0) % MCV 82.9 (80.0-100.0) fL MCH 26.3 (25.0-35.0) pg MCHC 31.7 (31.0-37.0) g/dL RDW 13.5 (11.5-15.5) % Plt Count 183 (150-450) k/uL MPV 10.4 Neutrophils % 54 % Lymphocytes % 37 % Monocytes % 5 % Eosinophils % 2 % Basophils % 0 % Neutrophils # 3.9 (1.3-7.7) k/uL Lymphocytes # 2.7 (1.0-4.8) k/uL Monocytes # 0.3 (0-1.0) k/uL Eosinophils # 0.2 (0-0.7) k/uL Basophils # 0.0 (0-0.2) k/uL Manual Slide Review Performed Large Platelets Present Hypochromasia Slight PT (10.0-12.5) sec INR (<1.2) APTT (22.0-30.0) sec Sodium (137-145) mmol/L Potassium (3.5-5.1) mmol/L Chloride (98-107) mmol/L Carbon Dioxide (22-30) mmol/L Anion Gap mmol/L BUN (9-20) mg/dL Creatinine (0.66-1.25) mg/dL Est GFR (CKD-EPI)AfAm (>60 ml/min/1.73 sqM) Est GFR (CKD-EPI)NonAf (>60 ml/min/1.73 sqM) Glucose (74-99) mg/dL Lactic Ac Sepsis Rflx Plasma Lactic Acid Vega (0.7-2.0) mmol/L Calcium (8.4-10.2) mg/dL Total Bilirubin (0.2-1.3) mg/dL AST (17-59) U/L ALT (4-49) U/L Alkaline Phosphatase (38-126) U/L Total Protein (6.3-8.2) g/dL Albumin (3.5-5.0) g/dL Amylase (30-110) U/L Lipase (23-300) U/L Urine Color Yellow Urine Appearance Clear (Clear) Urine pH 8.5 H (5.0-8.0) Ur Specific Hershey 1.026 (1.001-1.035) Urine Protein 1+ H (Negative) Urine Glucose (UA) Negative (Negative) Urine Ketones Trace H (Negative) Urine Blood Negative (Negative) Urine Nitrite Negative (Negative) Urine Bilirubin Negative (Negative) Urine Urobilinogen 3.0 (<2.0) mg/dL Ur Leukocyte Esterase Negative (Negative) Urine RBC <1 (0-5) /hpf Urine WBC <1 (0-5) /hpf Ur Squamous Epith Cells <1 (0-4) /hpf Urine Opiates Screen Not Detected (NotDetected) Ur Oxycodone Screen Not Detected (NotDetected) Urine Methadone Screen Not Detected (NotDetected) Ur Barbiturates Screen Not Detected (NotDetected) U Tricyclic Antidepress Not Detected (NotDetected) Ur Phencyclidine Scrn Not Detected (NotDetected) Ur Amphetamines Screen Not Detected (NotDetected) U Methamphetamines Scrn Not Detected (NotDetected) U Benzodiazepines Scrn Not Detected (NotDetected) Urine Cocaine Screen Not Detected (NotDetected) U Marijuana (THC) Screen Not Detected (NotDetected) Serum Alcohol mg/dL Influenza Type A (PCR) (Not Detectd) Influenza Type B (PCR) (Not Detectd) RSV (PCR) (Not Detectd) SARS-CoV-2 (PCR) (Not Detectd) 05/17/24 05/17/24 05/17/24 Range/Units 22:10 22:10 22:10 WBC (3.8-10.6) k/uL RBC (4.30-5.90) m/uL Hgb (13.0-17.5) gm/dL Hct (39.0-53.0) % MCV (80.0-100.0) fL MCH (25.0-35.0) pg MCHC (31.0-37.0) g/dL RDW (11.5-15.5) % Plt Count (150-450) k/uL MPV Neutrophils % % Lymphocytes % % Monocytes % % Eosinophils % % Basophils % % Neutrophils # (1.3-7.7) k/uL Lymphocytes # (1.0-4.8) k/uL Monocytes # (0-1.0) k/uL Eosinophils # (0-0.7) k/uL Basophils # (0-0.2) k/uL Manual Slide Review Large Platelets Hypochromasia PT 10.6 (10.0-12.5) sec INR 1.0 (<1.2) APTT 19.1 L (22.0-30.0) sec Sodium 137 (137-145) mmol/L Potassium 4.2 (3.5-5.1) mmol/L Chloride 96 L (98-107) mmol/L Carbon Dioxide 28 (22-30) mmol/L Anion Gap 13 mmol/L BUN 18 (9-20) mg/dL Creatinine 0.93 (0.66-1.25) mg/dL Est GFR (CKD-EPI)AfAm >90 (>60 ml/min/1.73 sqM) Est GFR (CKD-EPI)NonAf >90 (>60 ml/min/1.73 sqM) Glucose 141 H (74-99) mg/dL Lactic Ac Sepsis Rflx Plasma Lactic Acid Vega 3.7 H* (0.7-2.0) mmol/L Calcium 10.3 H (8.4-10.2) mg/dL Total Bilirubin 0.5 (0.2-1.3) mg/dL AST 23 (17-59) U/L ALT 16 (4-49) U/L Alkaline Phosphatase 60 (38-126) U/L Total Protein 8.1 (6.3-8.2) g/dL Albumin 5.1 H (3.5-5.0) g/dL Amylase 88 (30-110) U/L Lipase 158 (23-300) U/L Urine Color Urine Appearance (Clear) Urine pH (5.0-8.0) Ur Specific Hershey (1.001-1.035) Urine Protein (Negative) Urine Glucose (UA) (Negative) Urine Ketones (Negative) Urine Blood (Negative) Urine Nitrite (Negative) Urine Bilirubin (Negative) Urine Urobilinogen (<2.0) mg/dL Ur Leukocyte Esterase (Negative) Urine RBC (0-5) /hpf Urine WBC (0-5) /hpf Ur Squamous Epith Cells (0-4) /hpf Urine Opiates Screen (NotDetected) Ur Oxycodone Screen (NotDetected) Urine Methadone Screen (NotDetected) Ur Barbiturates Screen (NotDetected) U Tricyclic Antidepress (NotDetected) Ur Phencyclidine Scrn (NotDetected) Ur Amphetamines Screen (NotDetected) U Methamphetamines Scrn (NotDetected) U Benzodiazepines Scrn (NotDetected) Urine Cocaine Screen (NotDetected) U Marijuana (THC) Screen (NotDetected) Serum Alcohol <10 mg/dL Influenza Type A (PCR) (Not Detectd) Influenza Type B (PCR) (Not Detectd) RSV (PCR) (Not Detectd) SARS-CoV-2 (PCR) (Not Detectd) 05/17/24 05/17/24 05/18/24 Range/Units 22:10 22:51 00:23 WBC (3.8-10.6) k/uL RBC (4.30-5.90) m/uL Hgb (13.0-17.5) gm/dL Hct (39.0-53.0) % MCV (80.0-100.0) fL MCH (25.0-35.0) pg MCHC (31.0-37.0) g/dL RDW (11.5-15.5) % Plt Count (150-450) k/uL MPV Neutrophils % % Lymphocytes % % Monocytes % % Eosinophils % % Basophils % % Neutrophils # (1.3-7.7) k/uL Lymphocytes # (1.0-4.8) k/uL Monocytes # (0-1.0) k/uL Eosinophils # (0-0.7) k/uL Basophils # (0-0.2) k/uL Manual Slide Review Large Platelets Hypochromasia PT (10.0-12.5) sec INR (<1.2) APTT (22.0-30.0) sec Sodium (137-145) mmol/L Potassium (3.5-5.1) mmol/L Chloride (98-107) mmol/L Carbon Dioxide (22-30) mmol/L Anion Gap mmol/L BUN (9-20) mg/dL Creatinine (0.66-1.25) mg/dL Est GFR (CKD-EPI)AfAm (>60 ml/min/1.73 sqM) Est GFR (CKD-EPI)NonAf (>60 ml/min/1.73 sqM) Glucose (74-99) mg/dL Lactic Ac Sepsis Rflx Y Plasma Lactic Acid Vega 2.1 H* (0.7-2.0) mmol/L Calcium (8.4-10.2) mg/dL Total Bilirubin (0.2-1.3) mg/dL AST (17-59) U/L ALT (4-49) U/L Alkaline Phosphatase (38-126) U/L Total Protein (6.3-8.2) g/dL Albumin (3.5-5.0) g/dL Amylase (30-110) U/L Lipase (23-300) U/L Urine Color Urine Appearance (Clear) Urine pH (5.0-8.0) Ur Specific [place]hey (1.001-1.035) Urine Protein (Negative) Urine Glucose (UA) (Negative) Urine Ketones (Negative) Urine Blood (Negative) Urine Nitrite (Negative) Urine Bilirubin (Negative) Urine Urobilinogen (<2.0) mg/dL Ur Leukocyte Esterase (Negative) Urine RBC (0-5) /hpf Urine WBC (0-5) /hpf Ur Squamous Epith Cells (0-4) /hpf Urine Opiates Screen (NotDetected) Ur Oxycodone Screen (NotDetected) Urine Methadone Screen (NotDetected) Ur Barbiturates Screen (NotDetected) U Tricyclic Antidepress (NotDetected) Ur Phencyclidine Scrn (NotDetected) Ur Amphetamines Screen (NotDetected) U Methamphetamines Scrn (NotDetected) U Benzodiazepines Scrn (NotDetected) Urine Cocaine Screen (NotDetected) U Marijuana (THC) Screen (NotDetected) Serum Alcohol mg/dL Influenza Type A (PCR) Not Detected (Not Detectd) Influenza Type B (PCR) Not Detected (Not Detectd) RSV (PCR) Not Detected (Not Detectd) SARS-CoV-2 (PCR) Not Detected (Not Detectd) - EKG Data -: EKG Interpreted by Me EKG Comments: 12-lead Electrocardiogram Interpretation Note EKG was reviewed and interpreted by myself. 12-lead ECG performed at 2152 is interpreted by me as revealing normal sinus rhythm at a rate of 91 beats per minute. [place] is normal. ID interval is 147 ms, QRS duration is 94 ms, QTc is 390 ms.. There were no ST or T wave abnormalities to suggest myocardial ischemi a or injury. R wave progression across the precordium was delayed. By my interpretation this EKG is non-diagnostic for acute ischemia. Disposition Clinical Impression: Depression, Suicidal ideation, Diarrhea, Vomiting, Dehydration Disposition: TRANSFER TO PSYCH HOSP/UNIT Condition: Stable
[2024-05-17 22:39] LABS: Basophils % (A) 0 %; Eosinophils # (A) 0.2 k/uL (0-0.7); Eosinophils % (A) 2 %; HCT 45.2 % (39.0-53.0); HGB 14.3 gm/dL (13.0-17.5); Hypochromasia Slight; Lymphocytes # (A) 2.7 k/uL (1.0-4.8); Lymphocytes % (A) 37 %; MCH 26.3 pg (25.0-35.0); MCHC 31.7 g/dL (31.0-37.0); MCV 82.9 fL (80.0-100.0); Mean Platelet Volume 10.4; Monocytes # (A) 0.3 k/uL (0-1.0); Monocytes % (A) 5 %; Neutrophils # (A) 3.9 k/uL (1.3-7.7); Neutrophils % (A) 54 %; RBC 5.45 m/uL (4.30-5.90); RDW 13.5 % (11.5-15.5); WBC 7.2 k/uL (3.8-10.6)
[2024-05-17 22:50] LABS: ALT 16 U/L (4-49); AST 23 U/L (17-59); African American GFR (CKD) >90 (>60 ml/min/1.73 sqM); Albumin 5.1 g/dL (3.5-5.0); Alcohol <10 mg/dL; Alkaline Phosphatase 60 U/L (38-126); Amylase 88 U/L (30-110); Anion Gap 13 mmol/L; Blood Urea Nitrogen 18 mg/dL (9-20); Calcium 10.3 mg/dL (8.4-10.2); Carbon Dioxide 28 mmol/L (22-30); Chloride 96 mmol/L (98-107); Glucose 141 mg/dL (74-99); Lipase 158 U/L (23-300); Non-African American GFR(CKD) >90 (>60 ml/min/1.73 sqM); Potassium 4.2 mmol/L (3.5-5.1); Sodium 137 mmol/L (137-145); Total Bilirubin 0.5 mg/dL (0.2-1.3); Total Protein 8.1 g/dL (6.3-8.2)
[2024-05-17 22:56] LABS: Prothrombin Time 10.6 sec (10.0-12.5)
[2024-05-17 23:05] LABS: Appearance,Urine Clear (Clear); Bilirubin,Urine Negative (Negative); Blood,Urine Negative (Negative); Color,Urine Yellow; Glucose,Urine (UA) Negative (Negative); Ketones,Urine Trace (Negative); Leukocyte Esterase,Urine Negative (Negative); Nitrite,Urine Negative (Negative); PH, Urine 8.5 (5.0-8.0); Protein,Urine 1+ (Negative); RBC,Urine <1 /hpf (0-5); Specific Gravity,Urine 1.026 (1.001-1.035); Squamous Epithelial Cell,Urine <1 /hpf (0-4); WBC,Urine <1 /hpf (0-5)
[2024-05-17 23:19] LABS: Amphetamine Screen,Urine Not Detected (NotDetected); Barbiturate Screen,Urine Not Detected (NotDetected); Benzodiazepines Screen,Urine Not Detected (NotDetected); Cocaine Screen,Urine Not Detected (NotDetected); Methadone Screen, Urine Not Detected (NotDetected); Opiate Screen,Urine Not Detected (NotDetected); Oxycodone Screen, Urine Not Detected (NotDetected); Phencyclidine Screen,Urine Not Detected (NotDetected); Tricyclic Antidepressant,Urine Not Detected (NotDetected); Urn Cannabinoid Scrn Not Detected (NotDetected)
[2024-05-17 23:28] LABS: Influenza A Not Detected (Not Detectd); Influenza B Not Detected (Not Detectd); RSV Not Detected (Not Detectd)
[2024-05-17 23:42] LABS: Partial Thromboplastin Time 19.1 sec (22.0-30.0)
--- NOTE | 2024-05-18 00:14 | CT ---
EXAM: CT Abdomen and Pelvis With Intravenous Contrast CLINICAL HISTORY: ITS.REASON CT Reason: left abd pain, n/v/d TECHNIQUE: Axial computed tomography images of the abdomen and pelvis with intravenous contrast. CTDI is 18.4 mGy and DLP is 876.7 mGy-cm. This CT exam was performed using one or more of the following dose reduction techniques: automated exposure control, adjustment of the mA and/or kV according to patient size, and/or use of iterative reconstruction technique. Delayed imaging was performed. COMPARISON: 11/11/22 FINDINGS: Lung bases: Unremarkable. ABDOMEN: Liver: Unremarkable. No mass. Gallbladder and bile ducts: Unremarkable. No calcified stones. No ductal dilation. Pancreas: Unremarkable. No mass. No ductal dilation. Spleen: Unremarkable. No splenomegaly. Adrenals: Unremarkable. No mass. Kidneys and ureters: Unremarkable. No solid mass. No hydronephrosis. Stomach and bowel: Unremarkable. No mucosal thickening. No bowel obstruction. PELVIS: Appendix: Appendix not visualized. No secondary signs of appendicitis. Bladder: Unremarkable. No mass. Reproductive: Unremarkable as visualized. ABDOMEN and PELVIS: Intraperitoneal space: Unremarkable. No free air, significant free fluid, or fluid collection. Bones/joints: No acute fracture. No dislocation. Soft tissues: Unremarkable. Vasculature: Unremarkable. No abdominal aortic aneurysm. Lymph nodes: Unremarkable. No enlarged lymph nodes. IMPRESSION: No acute findings in the abdomen or pelvis.
[2024-05-18 01:34] LABS: Large Platelets Present
[2024-05-18 01:35] LABS: Platelet Count 183 k/uL (150-450)
[2024-05-18] MEDS ORDERED: LORazepam 2 MG/ML INJ IM PRN (02:25)
[2024-05-18] MEDS ORDERED: LORazepam 1 MG TAB PO PRN (02:25)
[2024-05-18] MEDS ORDERED: HALOPERIDOL LACTATE 5 MG/ML 1 ML VIAL IM PRN (02:25)
[2024-05-18] MEDS ORDERED: IBUPROFEN 600 MG TAB PO PRN (02:25)
[2024-05-18] MEDS ORDERED: haloperidoL 5 MG TAB PO PRN (02:25)
[2024-05-18] MEDS ORDERED: ACETAMINOPHEN TAB 325 MG TAB PO PRN (02:25)
[2024-05-18 06:19] LABS: Valproic Acid (Depakene) 44.9 ug/mL
[2024-05-18] MEDS ORDERED: DEXTROSE 50% SYRINGE 50 ML IVP PRN ×2 (06:35)
[2024-05-18] MEDS ORDERED: metFORMIN 500 MG TAB PO SCH (07:30)
[2024-05-18] MEDS: SODIUM CHLORIDE 0.9% 1,000 ML IV ONE (07:57)
[2024-05-18] MEDS: INSULIN LISPRO (HumaLOG) 100 UNIT/ML 10 mL VL SQ SCH (08:05)
[2024-05-18 08:08] LABS: Glucose,Whole Blood 135 mg/dL (70-110)
[2024-05-18] MEDS: ARIPiprazole 10 MG TAB PO SCH (08:10)
[2024-05-18] MEDS: buPROPion XL 300 MG TAB.ER.24H PO SCH (08:10)
[2024-05-18] MEDS ORDERED: buPROPion 100 MG TAB PO SCH (09:00)
[2024-05-18] MEDS: LACTATED RINGERS 1,000 ML IV SCH (09:30)
[2024-05-18] MEDS: ARIPiprazole 5 MG TAB PO ONE (11:08)
--- NOTE | 2024-05-18 11:36 | P.HP ---
Psychiatric H&P - . H&P Date: 05/18/24 History & Physical: Allergies Allergy/AdvReac Type Severity Reaction Status Date / Time No Known Allergies Allergy Verified 01/07/24 05:30 Vital Signs Temp 97.9 F 05/18/24 09:22 Pulse 66 05/18/24 09:22 Resp 16 05/18/24 09:22 BP 114/71 05/18/24 09:22 Pulse Ox 98 05/18/24 09:22 FiO2 Intake & Output 05/17/24 05/18/24 05/18/24 18:59 06:59 18:59 Weight 74.446 kg Laboratory Last Values WBC 7.2 k/uL (3.8-10.6) 05/17/24 22:10 RBC 5.45 m/uL (4.30-5.90) 05/17/24 22:10 Hgb 14.3 gm/dL (13.0-17.5) 05/17/24 22:10 Hct 45.2 % (39.0-53.0) 05/17/24 22:10 MCV 82.9 fL (80.0-100.0) 05/17/24 22:10 MCH 26.3 pg (25.0-35.0) 05/17/24 22:10 MCHC 31.7 g/dL (31.0-37.0) 05/17/24 22:10 RDW 13.5 % (11.5-15.5) 05/17/24 22:10 Plt Count 183 k/uL (150-450) 05/17/24 22:10 MPV 10.4 05/17/24 22:10 Neutrophils % 54 % 05/17/24 22:10 Lymphocytes % 37 % 05/17/24 22:10 Monocytes % 5 % 05/17/24 22:10 Eosinophils % 2 % 05/17/24 22:10 Basophils % 0 % 05/17/24 22:10 Neutrophils # 3.9 k/uL (1.3-7.7) 05/17/24 22:10 Lymphocytes # 2.7 k/uL (1.0-4.8) 05/17/24 22:10 Monocytes # 0.3 k/uL (0-1.0) 05/17/24 22:10 Eosinophils # 0.2 k/uL (0-0.7) 05/17/24 22:10 Basophils # 0.0 k/uL (0-0.2) 05/17/24 22:10 Manual Slide Review Performed 05/17/24 22:10 Large Platelets Present 05/17/24 22:10 Hypochromasia Slight 05/17/24 22:10 PT 10.6 sec (10.0-12.5) 05/17/24 22:10 INR 1.0 (<1.2) 05/17/24 22:10 APTT 19.1 sec (22.0-30.0) L 05/17/24 22:10 Sodium 137 mmol/L (137-145) 05/17/24 22:10 Potassium 4.2 mmol/L (3.5-5.1) 05/17/24 22:10 Chloride 96 mmol/L (98-107) L 05/17/24 22:10 Carbon Dioxide 28 mmol/L (22-30) 05/17/24 22:10 Anion Gap 13 mmol/L 05/17/24 22:10 BUN 18 mg/dL (9-20) 05/17/24 22:10 Creatinine 0.93 mg/dL (0.66-1.25) 05/17/24 22:10 Est GFR (CKD-EPI)AfAm >90 (>60 ml/min/1.73 sqM) 05/17/24 22:10 Est GFR (CKD-EPI)NonAf >90 (>60 ml/min/1.73 sqM) 05/17/24 22:10 Glucose 141 mg/dL (74-99) H 05/17/24 22:10 POC Glucose (mg/dL) 135 mg/dL (70-110) H 05/18/24 07:56 POC Glu [facility] ID Umm Saucedo 05/18/24 07:[address] Glu mg/dL 148 mg/dL 05/18/24 05:23 Hemoglobin A1c 6.8 % (<=6.0) H 05/18/24 05:23 Lactic Ac Sepsis Rflx Y 05/18/24 06:28 Plasma Lactic Acid Vega 3.6 mmol/L (0.7-2.0) H* 05/18/24 05:23 Calcium 10.3 mg/dL (8.4-10.2) H 05/17/24 22:10 Total Bilirubin 0.5 mg/dL (0.2-1.3) 05/17/24 22:10 AST 23 U/L (17-59) 05/17/24 22:10 ALT 16 U/L (4-49) 05/17/24 22:10 Alkaline Phosphatase 60 U/L (38-126) 05/17/24 22:10 Total Protein 8.1 g/dL (6.3-8.2) 05/17/24 22:10 Albumin 5.1 g/dL (3.5-5.0) H 05/17/24 22:10 Amylase 88 U/L (30-110) 05/17/24 22:10 Lipase 158 U/L (23-300) 05/17/24 22:10 TSH 1.430 mIU/L (0.465-4.680) 05/18/24 05:23 Urine Color Yellow 05/17/24 22:05 Urine Appearance Clear (Clear) 05/17/24 22:05 Urine pH 8.5 (5.0-8.0) H 05/17/24 22:05 Ur Specific [place] 1.026 (1.001-1.035) 05/17/24 22:05 Urine Protein 1+ (Negative) H 05/17/24 22:05 Urine Glucose (UA) Negative (Negative) 05/17/24 22:05 Urine Ketones Trace (Negative) H 05/17/24 22:05 Urine Blood Negative (Negative) 05/17/24 22:05 Urine Nitrite Negative (Negative) 05/17/24 22:05 Urine Bilirubin Negative (Negative) 05/17/24 22:05 Urine Urobilinogen 3.0 mg/dL (<2.0) 05/17/24 22:05 Ur Leukocyte Esterase Negative (Negative) 05/17/24 22:05 Urine RBC <1 /hpf (0-5) 05/17/24 22:05 Urine WBC <1 /hpf (0-5) 05/17/24 22:05 Ur Squamous Epith Cells <1 /hpf (0-4) 05/17/24 22:05 Urine Opiates Screen Not Detected (NotDetected) 05/17/24 22:05 Ur Oxycodone Screen Not Detected (NotDetected) 05/17/24 22:05 Urine Methadone Screen Not Detected (NotDetected) 05/17/24 22:05 Ur Barbiturates Screen Not Detected (NotDetected) 05/17/24 22:05 Valproic Acid 44.9 ug/mL 05/18/24 05:23 U Tricyclic Antidepress Not Detected (NotDetected) 05/17/24 22:05 Ur Phencyclidine Scrn Not Detected (NotDetected) 05/17/24 22:05 Ur Amphetamines Screen Not Detected (NotDetected) 05/17/24 22:05 U Methamphetamines Scrn Not Detected (NotDetected) 05/17/24 22:05 U Benzodiazepines Scrn Not Detected (NotDetected) 05/17/24 22:05 Urine Cocaine Screen Not Detected (NotDetected) 05/17/24 22:05 U Marijuana (THC) Screen Not Detected (NotDetected) 05/17/24 22:05 Serum Alcohol <10 mg/dL 05/17/24 22:10 Influenza Type A (PCR) Not Detected (Not Detectd) 05/17/24 22:10 Influenza Type B (PCR) Not Detected (Not Detectd) 05/17/24 22:10 RSV (PCR) Not Detected (Not Detectd) 05/17/24 22:10 SARS-CoV-2 (PCR) Not Detected (Not Detectd) 05/17/24 22:10 05/18/24 11:30 IDENTIFYING DATA: Patient is a 53-year-old -[place] male, unemployed and living alone in apartment CHIEF COMPLAINT: Suicidal ideations with plan HPI: Patient presented to the hospital with initially nausea and vomiting however patient was also reporting symptoms of depression. CT abdomen and pelvis in the ED was negative. EPS note states, "Patient brought self in for c/o abd pain, vomiting, and SI. Patient states he is open with [facility] and had an apmnt last week. During assessment pt appears to be thought blocking, and is slow to respond. Patient admits to thoughts of self harm and suicide but denies a plan. Patient states he has had increased stressors lately with not sleeping and not being able to find a job d/t "my mental". Patient states he has been hearing voices for a long time command in nature that tell him to do things he knows will get him in trouble. Patient states "they tell me to take my clothes off repeatedly and now they say b*tch over and over". Patient states he lives alone and has been compliant with medications and [facility] apmnts. During assessment pt stops during talking and asks fiction and nonfiction prose writer to repeat the questions. Patient denies access to guns and weapons. Patient states he has a support system. Pt initally was agreeing to safety plan. Once fiction and nonfiction prose writer made a copy to give to pt, pt then said "I don't feel right, I feel weird, I don't think I can keep myself safe if I am discharged"." Patient seen and evaluated on the unit. Patient's lactic acid was trending upwards from 2.1-3.6. Patient was started on an IV fluids with one-to-one in place with a repeat lactic acid ordered. Dealing with depression for a while. He mentions previously being employed however roughly 6 months ago he lost his job due to his voices being command in nature and telling him to take his clothes off. He states since then he has been struggling maintaining his independence, fearful of asking his parents for help as he is afraid of how they will perceive him. He reports some sleep difficulties, increase in appetite, low mood and energy, reporting suicidal ideations at this time with a plan to stab himself however no intent. Patient reports intermittent auditory hallucinations described as saying Bover and over however denied any auditory hallucinations at this moment. He denied any command in nature and his auditory hallucinations. Reports anxiety that appears generalized in nature. Patient denies any homicidal ideations intent or plan. At this time patient denies any auditory or visual hallucinations. Patient denies any flight of ideas racing thoughts and increased in goal directed behavior. Patient admits to using no substances PAST PSYCHIATRIC HISTORY: Patient has a history of bipolar disorder per patient. Patient is currently prescribed Depakote ER 1000 mg at bedtime, Abilify 10 mg daily, Wellbutrin XL 300 mg daily which was recently increased 1 week ago by his outpatient provider. Patient reports 2-3 inpatient hospitalizations most recent being 10 years ago. Patient follows with [facility] clinic. Patient reports 1 suicide attempt via jumping [place] bridge PMH: as per ER note ALLERGIES: as per EMR SUBSTANCE USE HISTORY: Patient states he stopped using substances roughly 4 months ago FAMILY PSYCHIATRIC/SUBSTANCE USE HISTORY: Patient reports his granddad had mental health issues SOCIAL HISTORY: Patient is from his for the past 8 years, has 4 sons and is unemployed. He lives alone in an apartment. MENTAL STATUS EXAM: General Appearance: Patient appears to be stated age is alert, directable, and attempts to cooperate. Patient appears to have fair hygiene and grooming. Behavior: Patient is laying without any agitated behavior. Speech: Patient's speech is fluent and talkative. Mood/Affect: Patient reports their mood is depressed, affect is congruent and constricted. Suicidality/Homicidality: Patient denies having any homicidal ideation intent or plan. He reports suicidal ideations with a plan, no intent Perceptions: Patient denies any visual hallucinations and denies any auditory hallucinations Though content/process: There is no evidence of any delusional thought content and thought process is circumstantial. Memory and concentration: AOX3, grossly intact for the purposes of this session. Can spell "WORLD" backwards Judgment and insight: Fair STRENGTHS/WEAKNESSES: strength is that patient is resilient, adherent with medications and appointments. Weakness is that patient has poor judgment, unemployed and is impulsive INTELLECT: Average IMPRESSIONS: Schizoaffective disorder, bipolar type Generalized anxiety disorder PLAN: -Patient is admitted under voluntary status to MHU for stabilization of psychiatric symptoms and safety. Patient has signed adult voluntary form and medication consent and is placed in patient's chart. -Medications : Increase Abilify to 15 mg daily for psychosis, continue Wellbutrin XL 300 mg daily for depression (note this medication was recently increased 1 week ago), continue Depakote ER 1000 mg at bedtime for mood stabilization -Ativan and Haldol PRN for agitation/aggression -Patient was informed of the risks, benefits and side effects of the medication and patient verbally consented to taking the medications. Patient signed med consent form and was placed in chart. -Internal Medicine consult to perform medical evaluation and physical. -NRT -not needed as patient does not smoke -SW on board for discharge planning. Encourage patient to participate in groups to work on coping skills.
[2024-05-18 12:34] LABS: Glucose,Whole Blood 87 mg/dL (70-110)
[2024-05-18 13:17] LABS: Basophils % (A) 0 %; Eosinophils # (A) 0.1 k/uL (0-0.7); Eosinophils % (A) 3 %; HCT 36.1 % (39.0-53.0); HGB 11.4 gm/dL (13.0-17.5); Hypochromasia Moderate; Lymphocytes # (A) 1.6 k/uL (1.0-4.8); Lymphocytes % (A) 32 %; MCH 26.9 pg (25.0-35.0); MCHC 31.7 g/dL (31.0-37.0); MCV 84.8 fL (80.0-100.0); Mean Platelet Volume 8.6; Monocytes # (A) 0.3 k/uL (0-1.0); Monocytes % (A) 6 %; Neutrophils # (A) 2.9 k/uL (1.3-7.7); Neutrophils % (A) 58 %; Platelet Count 185 k/uL (150-450); RBC 4.25 m/uL (4.30-5.90); RDW 13.8 % (11.5-15.5); WBC 5.1 k/uL (3.8-10.6)
[2024-05-18 13:30] LABS: ALT 13 U/L (4-49); AST 19 U/L (17-59); African American GFR (CKD) >90 (>60 ml/min/1.73 sqM); Albumin 3.8 g/dL (3.5-5.0); Alkaline Phosphatase 45 U/L (38-126); Anion Gap 6 mmol/L; Blood Urea Nitrogen 18 mg/dL (9-20); Calcium 8.8 mg/dL (8.4-10.2); Carbon Dioxide 27 mmol/L (22-30); Chloride 104 mmol/L (98-107); Glucose 118 mg/dL (74-99); Non-African American GFR(CKD) >90 (>60 ml/min/1.73 sqM); Potassium 4.7 mmol/L (3.5-5.1); Sodium 137 mmol/L (137-145); Total Bilirubin 0.3 mg/dL (0.2-1.3); Total Protein 6.2 g/dL (6.3-8.2)
[2024-05-18] MEDS: MAGNESIUM OXIDE 400 MG TAB PO STA (14:40)
[2024-05-18 17:31] LABS: Glucose,Whole Blood 122 mg/dL (70-110)
[2024-05-18 20:08] LABS: Glucose,Whole Blood 231 mg/dL (70-110)
[2024-05-18] MEDS: DIVALPROEX ER 500 MG TAB.ER.24H PO SCH (20:12)
[2024-05-18] MEDS: ATORVASTATIN 20 MG TAB PO SCH (20:12)
[2024-05-18] MEDS ORDERED: DIVALPROEX 500 MG TABLET.DR PO SCH (21:00)
[2024-05-19] MEDS: MAG HYDROX/AL HYDROX/SIMETH 355 ML BOTTLE PO PRN (00:54)
[2024-05-19] MEDS ORDERED: ONDANSETRON ODT 4 MG TAB PO PRN (01:33)
[2024-05-19 08:00] LABS: Glucose,Whole Blood 144 mg/dL (70-110)
[2024-05-19] MEDS: ARIPiprazole 15 MG TAB PO SCH (08:46)
--- NOTE | 2024-05-19 11:27 | P.PN ---
Progress Note - Text Progress Note Date: 05/19/24 Interval History: Patient was seen today for psychiatric follow up. Patient appeared to have a depressed affect, states that he was feeling suicidal before coming to the hospital. States that he is feeling mild improvement since coming in to the hospital, claims that he was feeling suicidal also stating that he was hearing voices telling him to harm himself. States that he did not attempt to harm himself this time. Claims that he has been on the medications has been taking them at home. Not reporting any side effects at this time. States that his anxiety is mildly improving since yesterday. Has been mainly keeping himself on the unit. Denies any homicidal ideations, states that the suicidal ideations are still present however decreasing. Claims that he is still hearing voices, they are also decreasing in nature, denies any visual hallucinations. MENTAL STATUS EXAM: General Appearance: Patient appears to be stated age is alert, directable, and attempts to cooperate. Patient appears to have fair hygiene and grooming. Behavior: Patient is laying without any agitated behavior. Somewhat withdrawn. Speech: Patient's speech is fluent and talk concrete Mood/Affect: Patient reports their mood is depressed, improving mildly, affect is congruent and constricted. Suicidality/Homicidality: Patient denies having any homicidal ideation intent or plan. He reports suicidal ideations with no plan, no intent Perceptions: Patient denies any visual hallucinations and admits to having auditory hallucinations Though content/process: There is no evidence of any delusional thought content and thought process is circu goal oriented. Fairly concrete guarded. Memory and concentration: AOX3, grossly intact for the purposes of this session. Judgment and insight: Fair IMPRESSIONS: Schizoaffective disorder, bipolar type Generalized anxiety disorder PLAN: -Patient is admitted under voluntary status to MHU for stabilization of psychiatric symptoms and safety. Patient has signed adult voluntary form and medication consent and is placed in patient's chart. -Medications : Increase Abilify 20 mg daily for psychosis, continue Wellbutrin XL 300 mg daily for depression, continue Depakote ER 1000 mg at bedtime for mood stabilization -Ativan and Haldol PRN for agitation/aggression -NRT -not needed as patient does not smoke -SW on board for discharge planning. Encourage patient to participate in groups to work on coping skills.
[2024-05-19 13:01] LABS: Glucose,Whole Blood 88 mg/dL (70-110)
[2024-05-19 17:56] LABS: Glucose,Whole Blood 183 mg/dL (70-110)
[2024-05-19] MEDS: metFORMIN 500 MG TAB PO SCH (18:24)
[2024-05-19 20:01] LABS: Glucose,Whole Blood 149 mg/dL (70-110)
[2024-05-19] MEDS: FAMOTIDINE 20 MG TAB PO SCH (20:47)
[2024-05-19] MEDS ORDERED: NON FORMULARY DRUG (Simvastatin 20 MG Tab) PO SCH (21:00)
--- NOTE | 2024-05-20 07:10 | P.MDCNMH ---
History of Present Illness H&P Date: 05/20/24 53-year-old male with hypertension diabetes denies any abdominal pain fevers chills or urinary changes Patient came into the hospital for evaluation due to depression and suicidal ideation he currently denies any hallucinations denies any drug abuse he reports some constipation denies any GI bleeding denies any nausea vomiting abdominal pain fevers or chills or urinary changes Upon initial presentation to the ED he was complaining of abdominal pain with repeated nausea vomiting she was found to have lactic acidosis CT of the abdomen showed no acute pathology he was given fluid resuscitation stabilized and admitted to the mental health unit review of systems Pertinent positives as noted in HPI. All other systems were reviewed and are negative on exam Constitutional: No acute distress, conversant, pleasant Eyes: Anicteric sclerae, moist conjunctiva, Pupils equal round reactive to light ENMT: NC/AT Oropharynx clear, no erythema, or exudates Lungs: Clear to auscultation Clear to percussion Normal respiratory effort, no accessory muscle use Cardiovascular: Heart regular in rate and rhythm, No murmurs, gallops, or rubs No peripheral edema Abdominal: Soft Nontender, no guarding, rebound or rigidity Abdomen moving with respiration Normoactive bowel sounds Extremities: No digital cyanosis No clubbing Pedal pulses intact and symmetrical Radial pulses intact and symmetrical No calf tenderness Psychiatric: Alert and oriented to person, place and time Neuro Muscles Strength 5/5 in all 4 extremities Sensation to light touch grossly present throughout Cranial nerves II-XII grossly intact Past Medical History Past Medical History: Diabetes Mellitus, Hyperlipidemia, Hypertension History of Any Multi-Drug Resistant Organisms: None Reported Past Surgical History: Appendectomy Past Anesthesia/Blood Transfusion Reactions: No Reported Reaction Smoking Status: Former smoker - Past Family History Mother History Unknown: Yes Medications and Allergies Home Medications Medication Instructions Recorded Confirmed Type buPROPion XL [Wellbutrin XL] 150 mg PO DAILY 03/01/18 11/11/22 History Enalapril [Vasotec] 10 mg PO DAILY 05/21/18 11/11/22 History Simvastatin [Zocor] 20 mg PO HS 05/21/18 11/11/22 History metFORMIN HCL [Glucophage] 1,000 mg PO BID 05/21/18 11/11/22 History Cholecalciferol [Vitamin D3 (125 125 mcg PO DAILY 11/11/22 11/11/22 History Mcg = 5000 Iu)] Divalproex ER [Depakote ER] 1,000 mg PO HS 11/11/22 11/11/22 History Famotidine [Pepcid] 20 mg PO BID 11/11/22 11/11/22 History Fenofibrate [Lofibra] 54 mg PO DAILY 11/11/22 11/11/22 History sitaGLIPtin [Januvia] 100 mg PO DAILY 11/11/22 11/11/22 History Acetaminophen Tab [Tylenol] 1,000 mg PO Q6HR PRN #30 tablet 11/13/22 Rx Amoxic-Pot Clav 875-125Mg 1 tab PO BID 7 Days #14 tab 11/13/22 Rx [Augmentin 875-125] oxyCODONE HCL [OxyIR] 5 mg PO Q6H PRN 3 Days #12 tab 11/13/22 Rx Allergies Allergy/AdvReac Type Severity Reaction Status Date / Time No Known Allergies Allergy Verified 01/07/24 05:30 Physical Exam Vitals: Vital Signs Temp Pulse Resp BP Pulse Ox 05/19/24 20:48 97.9 F 76 16 130/97 100 05/19/24 07:50 97.8 F 79 18 121/74 96 Cranial Nerve Examination - Cranial Nerves Cranial Nerve II- Optic: Intact Cranial Nerve III- Oculomotor: Intact Cranial Nerve IV- Trochlear: Intact Cranial Nerve V- Trigeminal: Intact Cranial Nerve - Abducens: Intact Cranial Nerve VII- Facial: Intact Cranial Nerve VIII- Auditory: Intact Cranial Nerve IX- Glossopharyngeal: Intact Cranial Nerve X- Vagus: Intact Cranial Nerve XI- Accessory: Intact Cranial Nerve XII- Hypoglossal: Intact Results CBC & Chem 7: 05/18/24 12:57 05/18/24 12:57 Labs: Abnormal Lab Results - Last 24 Hours (Table) 05/19/24 05/19/24 05/19/24 Range/Units 07:59 17:54 19:59 POC Glucose (mg/dL) 144 H 183 H 149 H (70-110) mg/dL Assessment and Plan Assessment: Depression and suicidal ideation Management per psych Diabetes mellitus Insulin sliding scale sliding scale Hypertension controlled Continue with lisinopril Constipation Continue with as needed milk of magnesia and docusate Upon initial presentation patient had some abdominal pain blood work showed lactic acidosis he was given some fluids and that has resolved CT of the abdomen showed no acute pathology Labs reviewed overall unremarkable white count 7 hemoglobin 14.3 Sodium 137 potassium 4.2 BUN 18 creatinine 0.9 Liver enzymes unremarkable with AST 23 ALT 16 bilirubin 0.5 Thank you for this consultation patient stable from medical standpoint at this time
[2024-05-20 07:42] LABS: Glucose,Whole Blood 175 mg/dL (70-110)
[2024-05-20] MEDS: lisinopriL 20 MG TAB PO SCH (08:10)
[2024-05-20] MEDS: LINAGLIPTIN 5 MG TABLET PO SCH (08:10)
--- NOTE | 2024-05-20 11:19 | P.PN ---
Progress Note - Text Progress Note Date: 05/20/24 Interval History: Patient was seen today for psychiatric follow up. Patient claims that he is d oing a bit better today, claims that his depression and anxiety been improving. States that he is not having suicidal thoughts today, claims that he still hearing voices however they are improving mildly since yesterday. He claims that he is tolerating the medication fairly well. We spoke about transitioning onto long-acting injection, patient has several questions about it, he states that he wants to think about it for today. Claims that he has been eating well, going to some groups. Not reporting any side effects at this time. He claims that he slept fairly last night. Denies any homicidal ideations, states that the suicidal ideations are still present however decreasing. denies any visual hallucinations. MENTAL STATUS EXAM: General Appearance: Patient appears to be stated age is alert, directable, and attempts to cooperate. Patient appears to have fair hygiene and grooming. Behavior: Patient is laying without any agitated behavior. More cooperative today Speech: Patient's speech is fluent and talk concrete, improving mildly Mood/Affect: Patient reports their mood is depressed, improving mildly, affect is congruent and constricted. Improving mildly Suicidality/Homicidality: Patient denies having any homicidal ideation intent or plan. Denies any suicidal ideations with no plan, no intent Perceptions: Patient denies any visual hallucinations and admits to having aud itory hallucinations, these are improving mildly Though content/process: There is no evidence of any delusional thought content and thought process is circu goal oriented. Fairly concrete guarded. Memory and concentration: AOX3, grossly intact for the purposes of this session. Judgment and insight: Fair IMPRESSIONS: Schizoaffective disorder, bipolar type Generalized anxiety disorder PLAN: -Patient is admitted under voluntary status to MHU for stabilization of psychiatric symptoms and safety. Patient has signed adult voluntary form and medication consent and is placed in patient's chart. -Medications : Abilify 20 mg daily for psychosis, continue Wellbutrin XL 300 mg daily for depression, Depakote ER 1000 mg at bedtime for mood stabilization. fiction and nonfiction prose writer offered ALEJANDRE to patient and he claims he would like to think about it at this time -Ativan and Haldol PRN for agitation/aggression -NRT -not needed as patient does not smoke -SW on board for discharge planning. Encourage patient to participate in groups to work on coping skills. Hopeful for discharge versus Sunday if patient is improving. Will consider long-acting injection prior to discharge.
[2024-05-20 12:56] LABS: Glucose,Whole Blood 94 mg/dL (70-110)
[2024-05-20 15:04] LABS: % Iron Saturation 14.44 (15.00-50.00); Chol/HDL Ratio 2.71 Ratio; Iron 52 UG/DL (65-175); Total Iron Binding Capacity 360 UG/DL (228-460); VLDL Calculation 16.46 mg/dL (5.00-40.00)
[2024-05-20 17:54] LABS: Glucose,Whole Blood 183 mg/dL (70-110)
[2024-05-20 20:07] LABS: Glucose,Whole Blood 137 mg/dL (70-110)
[2024-05-21 07:42] LABS: Glucose,Whole Blood 130 mg/dL (70-110)
--- NOTE | 2024-05-21 10:21 | P.PN ---
Progress Note - Text Progress Note Date: 05/21/24 Interval History: Patient was seen today for psychiatric follow up. Patient was laying in his b ed, claims that he feels a bit tired this morning. States that his mood and anxiety have been mildly improving. Claims that the voices have also been improving at this time. Claims that he missed the morning group however did go to evening groups yesterday. Appears to have mild improvement in his insight and judgment today. States that he is sleeping fairly throughout the night, has been eating well. Not reporting any other side effects at this time. Denies any homicidal ideations, denies any suicidal ideations. denies any visual hallucinations. We spoke again about the transition to long-acting injection and he was okay with receiving it prior to discharge. MENTAL STATUS EXAM: General Appearance: Patient appears to be stated age is alert, directable, and attempts to cooperate. Patient appears to have fair hygiene and grooming. Behavior: Patient is laying without any agitated behavior. More cooperative today Speech: Patient's speech is fluent and talk concrete, improving mildly Mood/Affect: Patient reports their mood is improving mildly, affect is congruent and constricted. Improving mildly Suicidality/Homicidality: Patient denies having any homicidal ideation intent or plan. Denies any suicidal ideations with no plan, no intent Perceptions: Patient denies any visual hallucinations and admits to having auditory hallucinations, these are improving mildly Though content/process: There is no evidence of any delusional thought content and thought process is circu goal oriented. Fairly concrete guarded. Improving mildly Memory and concentration: AOX3, grossly intact for the purposes of this session. Judgment and insight: Fair IMPRESSIONS: Schizoaffective disorder, bipolar type Generalized anxiety disorder PLAN: -Patient is admitted under voluntary status to MHU for stabilization of psychiatric symptoms and safety. Patient has signed adult voluntary form and medication consent and is placed in patient's chart. -Medications : Abilify 20 mg daily for psychosis, continue Wellbutrin XL 300 mg daily for depression, Depakote ER 1000 mg at bedtime for mood stabilization. Patient is agreeable to receive Abilify Maintena, will give 400 mg IM dose tomorrow -Ativan and Haldol PRN for agitation/aggression -NRT -not needed as patient does not smoke -SW on board for discharge planning. Encourage patient to participate in groups to work on coping skills. Hopeful for discharge Sunday if patient is improving. Will give long-acting injection prior to discharge.
[2024-05-21] MEDS: MAGNESIUM HYDROXIDE 2,400 MG/30 ML CUP PO PRN (11:25)
[2024-05-21 12:39] LABS: Glucose,Whole Blood 89 mg/dL (70-110)
[2024-05-21 17:46] LABS: Glucose,Whole Blood 121 mg/dL (70-110)
[2024-05-21 20:04] LABS: Glucose,Whole Blood 158 mg/dL (70-110)
[2024-05-22 07:49] LABS: Glucose,Whole Blood 129 mg/dL (70-110)
--- NOTE | 2024-05-22 11:11 | P.PN ---
Progress Note - Text Progress Note Date: 05/22/24 Interval History: Patient was seen today for psychiatric follow up. Patient was coming out of the shower today. Claims that he is doing a bit better today overall, claims that his mood and anxiety been mildly improving. He was again somewhat hesitant about the injection, we spoke about the side effects, the benefits risk reward, he was agreeable to receive it today. Claims that he has been going to some groups, claims that he slept a bit better last night has been eating better. We spoke about potential discharge tomorrow which she is okay with. Not reporting any other side effects at this time. Denies any homicidal ideations, denies any suicidal ideations. denies any visual hallucinations. MENTAL STATUS EXAM: General Appearance: Patient appears to be stated age is alert, directable, and attempts to cooperate. Patient appears to have fair hygiene and grooming. Behavior: Patient is laying without any agitated behavior. More cooperative today Speech: Patient's speech is fluent and talk concrete, improving mildly Mood/Affect: Patient reports their mood is improving mildly, affect is congruent and Improving mildly Suicidality/Homicidality: Patient denies having any homicidal ideation intent or plan. Denies any suicidal ideations with no plan, no intent Perceptions: Patient denies any visual hallucinations and admits to having auditory hallucinations, these are improving mildly Though content/process: There is no evidence of any delusional thought content and thought process is goal oriented. Improving mildly Memory and concentration: AOX3, grossly intact for the purposes of this session. Judgment and insight: Fair IMPRESSIONS: Schizoaffective disorder, bipolar type Generalized anxiety disorder PLAN: -Patient is admitted under voluntary status to MHU for stabilization of psychiatric symptoms and safety. Patient has signed adult voluntary form and medication consent and is placed in patient's chart. -Medications : Abilify 20 mg daily for psychosis, continue Wellbutrin XL 300 mg daily for depression, Depakote ER 1000 mg at bedtime for mood stabilization. Patient is agreeable to receive Abilify Maintena 400 mg IM dose today, next dose will be due in 1 month on 06/19 -Ativan and Haldol PRN for agitation/aggression -NRT -not needed as patient does not smoke -SW on board for discharge planning. Encourage patient to participate in groups to work on coping skills. Hopeful for discharge tomorrow if patient is improving. Will give long-acting injection prior to discharge.
[2024-05-22] MEDS: ARIPiprazole IM SYRINGE 400 MG (NO CHARGE) PHARMACY STOCK IM SCH (12:39)
[2024-05-22 12:40] LABS: Glucose,Whole Blood 134 mg/dL (70-110)
[2024-05-22 18:35] LABS: Glucose,Whole Blood 146 mg/dL (70-110)
[2024-05-22 20:12] LABS: Glucose,Whole Blood 168 mg/dL (70-110)
[2024-05-23 07:58] LABS: Glucose,Whole Blood 141 mg/dL (70-110)
[2024-05-23 10:45] VITALS: BP 103/57; PULSE 115; RESP 16; TEMP 98
--- NOTE | 2024-05-23 10:59 | P.DS ---
Providers Date of admission: 05/18/24 02:22 Expected date of discharge: 05/23/24 Attending physician: Je Arrieta MD Consults: 05/18/24 02:25 Consult Physician Routine Consulting Provider: Halina Bennett Consult Reason/Comments: h&p Do you want consulting provider notified?: Yes Primary care physician: [facility] - Discharge Diagnosis(es) (1) Schizoaffective disorder, bipolar type Current Visit: Yes Status: Acute Priority: High (2) Generalized anxiety disorder Current Visit: Yes Status: Acute Priority: Medium Hospital Course: Admission HPI: Admission note was completed by music writer "Patient is a 53-year-old - [place] male, unemployed and living alone in apartment. Patient presented to the hospital with initially nausea and vomiting however patient was also reporting symptoms of depression. CT abdomen and pelvis in the ED was negative. EPS note states, "Patient brought self in for c/o abd pain, vomiting, and SI. Patient states he is open with [facility] and had an apmnt last week. During assessment pt appears to be thought blocking, and is slow to respond. Patient admits to thoughts of self harm and suicide but denies a plan. Patient states he has had increased stressors lately with not sleeping and not being able to find a job d/t "my mental". Patient states he has been hearing voices for a long time command in nature that tell him to do things he knows will get him in trouble. Patient states "they tell me to take my clothes off repeatedly and now they say b*tch over and over". Patient states he lives alone and has been compliant with medications and [facility] apmnts. During assessment pt stops during talking and asks music writer to repeat the questions. Patient denies access to guns and weapons. Patient states he has a support system. Pt initally was agreeing to safety plan. Once music writer made a copy to give to pt, pt then said "I don't feel right, I feel weird, I don't think I can keep myself safe if I am discharged"." Patient seen and evaluated on the unit. Patient's lactic acid was trending upwards from 2.1- 3.6. Patient was started on an IV fluids with one-to-one in place with a repeat lactic acid ordered. Dealing with depression for a while. He mentions previously being employed however roughly 6 months ago he lost his job due to his voices being command in nature and telling him to take his clothes off. He states since then he has been struggling maintaining his independence, fearful of asking his parents for help as he is afraid of how they will perceive him. He reports some sleep difficulties, increase in appetite, low mood and energy, reporting suicidal ideations at this time with a plan to stab himself however no intent. Patient reports intermittent auditory hallucinations described as saying Bover and over however denied any auditory hallucinations at this moment. He denied any command in nature and his auditory hallucinations. Reports anxiety that appears generalized in nature. Patient denies any homicidal ideations intent or plan. At this time patient denies any auditory or visual hallucinations. Patient denies any flight of ideas racing thoughts and increased in goal directed behavior. Patient admits to using no substances" Hospital course: Upon admission to the unit patient was directable and agreeable to commence treatment and signed adult voluntary form. Patient was initially depressed, having suicidal thoughts, hearing voices, however with time and treatment patient got along well with other patients on the unit and followed unit protocol. Patient was compliant with the medications and denied any side effects throughout hospital course. Patient was started on Abilify increased to a dose of 20 mg p.o. daily for mood stabilization/psychosis, patient was agre eable to be transition onto Abilify maintainer given 400 mg IM on 05/22, next dose will be due at [facility] on 06/19. Patient was also continued on home dose of Depakote ER 1500 mg nightly for mood stabilization, Wellbutrin XL 300 mg daily for depression patient spoke of his stressors and engaged in therapy both group/activity therapy. Patient was also seen by medical team for history and physical exam. Throughout the course of the hospitalization patient gradually improved with regards to mood, anxiety, psychosis, sleep and became more future oriented with improved insight and judgment. On the day of discharge patient denied any suicidal or homicidal ideations intent or plan denied any auditory or visual hallucinations. Patient endorsed wanting to live for their health and family. The patient denied any access to guns or weapons. Patient denied any paranoia and did not endorse any delusions. Patient does not have a significant history of substance abuse and was counseled on abstaining from all substances including alcohol and marijuana. Patient was also counseled on the medications and need for regular compliance and was encouraged to follow-up with their outpatient appointment for mental health and also for primary care. Mental status exam: General Appearance: Patient appears to be short in stature, shaved head, stated age is alert, pleasant, and cooperative. Patient is in no acute distress and has improved hygiene and grooming Behavior: Patient is calmly seated without any agitated behavior. Speech: Patient's speech is fluent and nonpressured. Mood/Affect: Patient reports their mood is "better", affect is congruent and euthymic. Suicidality/Homicidality: Patient denies having any suicidal or homicidal ideation intent or plan. Perceptions: Patient denies any auditory or visual hallucinations. Though content/process: There is no evidence of any delusional thought content and thought process is linear and goal-directed. More future oriented Memory and concentration: AOX3, grossly intact for the purposes of this session. Can spell "WORLD" backwards correctly. Judgment and insight: improved with guarded prognosis Impression: Schizoaffective disorder bipolar type Generalized anxiety disorder Plan: -Continue with discharge today as patient has improved and stabilized psychiatrically and is not currently an imminent threat to themself and/or others. -Continue medications: Patient received Abilify maintainer given 400 mg IM on 05/22, next dose will be due at [facility] on 06/19. Continue with Wellbutrin XL 300 mg daily for depression, Depakote ER 1500 mg nightly for mood stabilization. Prescribed 13 days of Abilify p.o. as a bridge to the long-acting injection, discontinue after this is complete. -Patient was counseled on the need for medication compliance and appropriate follow-up at mental health and also primary care for medical issues. Patient verbalized understanding and agreed. -Social work to help coordinate patients discharge today, patient states that he will be able to walk home today. also to ensure safe home environment that guns/weapons are either removed from the home or locked away. Social work also to arrange for patients follow up appointments with [facility] for psychiatric care along with follow up with primary care provider. -Patient counseled on abstaining from recreational drugs and marijuana and alcohol. Was informed/educated on the adverse effects on their physical and mental health. Patient verbally agreed and understood. -Patient was instructed to return to the hospital or seek immediate medical care if their psychiatric or medical symptoms do worsen or reoccur. Allergies Allergy/AdvReac Type Severity Reaction Status Date / Time No Known Allergies Allergy Verified 01/07/24 05:30 Laboratory Results WBC 5.1 k/uL (3.8-10.6) 05/18/24 12:57 RBC 4.25 m/uL (4.30-5.90) L 05/18/24 12:57 Hgb 11.4 gm/dL (13.0-17.5) L 05/18/24 12:57 Hct 36.1 % (39.0-53.0) L 05/18/24 12:57 MCV 84.8 fL (80.0-100.0) 05/18/24 12:57 MCH 26.9 pg (25.0-35.0) 05/18/24 12:57 MCHC 31.7 g/dL (31.0-37.0) 05/18/24 12:57 RDW 13.8 % (11.5-15.5) 05/18/24 12:57 Plt Count 185 k/uL (150-450) 05/18/24 12:57 MPV 8.6 05/18/24 12:57 Neutrophils % 58 % 05/18/24 12:57 Lymphocytes % 32 % 05/18/24 12:57 Monocytes % 6 % 05/18/24 12:57 Eosinophils % 3 % 05/18/24 12:57 Basophils % 0 % 05/18/24 12:57 Neutrophils # 2.9 k/uL (1.3-7.7) 05/18/24 12:57 Lymphocytes # 1.6 k/uL (1.0-4.8) 05/18/24 12:57 Monocytes # 0.3 k/uL (0-1.0) 05/18/24 12:57 Eosinophils # 0.1 k/uL (0-0.7) 05/18/24 12:57 Basophils # 0.0 k/uL (0-0.2) 05/18/24 12:57 Manual Slide Review Performed 05/17/24 22:10 Large Platelets Present 05/17/24 22:10 Hypochromasia Moderate 05/18/24 12:57 PT 10.6 sec (10.0-12.5) 05/17/24 22:10 INR 1.0 (<1.2) 05/17/24 22:10 APTT 19.1 sec (22.0-30.0) L 05/17/24 22:10 Sodium 137 mmol/L (137-145) 05/18/24 12:57 Potassium 4.7 mmol/L (3.5-5.1) 05/18/24 12:57 Chloride 104 mmol/L (98-107) 05/18/24 12:57 Carbon Dioxide 27 mmol/L (22-30) 05/18/24 12:57 Anion Gap 6 mmol/L 05/18/24 12:57 BUN 18 mg/dL (9-20) 05/18/24 12:57 Creatinine 0.93 mg/dL (0.66-1.25) 05/18/24 12:57 Est GFR (CKD-EPI)AfAm >90 (>60 ml/min/1.73 sqM) 05/18/24 12:57 Est GFR (CKD-EPI)NonAf >90 (>60 ml/min/1.73 sqM) 05/18/24 12:57 Glucose 118 mg/dL (74-99) H 05/18/24 12:57 POC Glucose (mg/dL) 141 mg/dL (70-110) H 05/23/24 07:56 POC Glu Clock And Watch Assembler ID Rabia Bull 05/23/24 07:[address] Glu mg/dL 148 mg/dL 05/18/24 05:23 Hemoglobin A1c 6.8 % (<=6.0) H 05/18/24 05:23 Lactic Ac Sepsis Rflx Y 05/18/24 06:28 Plasma Lactic Acid Vega 1.5 mmol/L (0.7-2.0) 05/18/24 12:57 Calcium 8.8 mg/dL (8.4-10.2) 05/18/24 12:57 Magnesium 1.6 mg/dL (1.6-2.3) 05/18/24 12:57 Iron 52 UG/DL (65-175) L 05/18/24 12:57 TIBC 360 UG/DL (228-460) 05/18/24 12:57 % Saturation 14.44 (15.00-50.00) L 05/18/24 12:57 Transferrin 257.0 mg/dL (204.0-354.0) 05/18/24 12:57 Total Bilirubin 0.3 mg/dL (0.2-1.3) 05/18/24 12:57 AST 19 U/L (17-59) 05/18/24 12:57 ALT 13 U/L (4-49) 05/18/24 12:57 Alkaline Phosphatase 45 U/L (38-126) 05/18/24 12:57 Total Protein 6.2 g/dL (6.3-8.2) L 05/18/24 12:57 Albumin 3.8 g/dL (3.5-5.0) 05/18/24 12:57 Triglycerides 82.30 mg/dL (0.00-149.00) 05/18/24 12:57 Cholesterol 118.00 mg/dL (0.00-200.00) 05/18/24 12:57 LDL Cholesterol, Calc 58.0 mg/dL (0.0-131.0) 05/18/24 12:57 VLDL Cholesterol, Calc 16.46 mg/dL (5.00-40.00) 05/18/24 12:57 HDL Cholesterol 43.50 mg/dL (40.00-60.00) 05/18/24 12:57 Cholesterol/HDL Ratio 2.71 Ratio 05/18/24 12:57 Amylase 88 U/L (30-110) 05/17/24 22:10 Lipase 158 U/L (23-300) 05/17/24 22:10 Vitamin B12 534.0 pg/mL (200.0-944.0) 05/18/24 12:57 TSH 1.430 mIU/L (0.465-4.680) 05/18/24 05:23 Urine Color Yellow 05/17/24 22:05 Urine Appearance Clear (Clear) 05/17/24 22:05 Urine pH 8.5 (5.0-8.0) H 05/17/24 22:05 Ur Specific Alder 1.026 (1.001-1.035) 05/17/24 22:05 Urine Protein 1+ (Negative) H 05/17/24 22:05 Urine Glucose (UA) Negative (Negative) 05/17/24 22:05 Urine Ketones Trace (Negative) H 05/17/24 22:05 Urine Blood Negative (Negative) 05/17/24 22:05 Urine Nitrite Negative (Negative) 05/17/24 22:05 Urine Bilirubin Negative (Negative) 05/17/24 22:05 Urine Urobilinogen 3.0 mg/dL (<2.0) 05/17/24 22:05 Ur Leukocyte Esterase Negative (Negative) 05/17/24 22:05 Urine RBC <1 /hpf (0-5) 05/17/24 22:05 Urine WBC <1 /hpf (0-5) 05/17/24 22:05 Ur Squamous Epith Cells <1 /hpf (0-4) 05/17/24 22:05 Urine Opiates Screen Not Detected (NotDetected) 05/17/24 22:05 Ur Oxycodone Screen Not Detected (NotDetected) 05/17/24 22:05 Urine Methadone Screen Not Detected (NotDetected) 05/17/24 22:05 Ur Barbiturates Screen Not Detected (NotDetected) 05/17/24 22:05 Valproic Acid 44.9 ug/mL 05/18/24 05:23 U Tricyclic Antidepress Not Detected (NotDetected) 05/17/24 22:05 Ur Phencyclidine Scrn Not Detected (NotDetected) 05/17/24 22:05 Ur Amphetamines Screen Not Detected (NotDetected) 05/17/24 22:05 U Methamphetamines Scrn Not Detected (NotDetected) 05/17/24 22:05 U Benzodiazepines Scrn Not Detected (NotDetected) 05/17/24 22:05 Urine Cocaine Screen Not Detected (NotDetected) 05/17/24 22:05 U Marijuana (THC) Screen Not Detected (NotDetected) 05/17/24 22:05 Serum Alcohol <10 mg/dL 05/17/24 22:10 Influenza Type A (PCR) Not Detected (Not Detectd) 05/17/24 22:10 Influenza Type B (PCR) Not Detected (Not Detectd) 05/17/24 22:10 RSV (PCR) Not Detected (Not Detectd) 05/17/24 22:10 SARS-CoV-2 (PCR) Not Detected (Not Detectd) 05/17/24 22:10 Vital Signs Temp 98.0 F 05/23/24 09:00 Pulse 115 H 05/23/24 09:00 Resp 16 05/23/24 09:00 BP 103/57 05/23/24 09:00 Pulse Ox 99 05/23/24 09:00 FiO2 Patient Condition at Discharge: Stable Plan - Discharge Summary Discharge Rx Participant: No New Discharge Prescriptions: New Divalproex ER [Depakote ER] 1,000 mg PO HS 30 Days #90 tab buPROPion XL [Wellbutrin XL] 300 mg PO DAILY 30 Days #30 tab ARIPiprazole [Abilify] 20 mg PO DAILY 13 Days #13 tab ARIPiprazole IM SYRINGE [Abilify Maintena Syringe] 400 mg IM QMONTHLY #1 each Continue Simvastatin [Zocor] 20 mg PO HS Enalapril [Vasotec] 10 mg PO DAILY sitaGLIPtin [Januvia] 100 mg PO DAILY Famotidine [Pepcid] 20 mg PO BID metFORMIN HCL [Glucophage] 1,000 mg PO BID 30 Days #60 Discontinued buPROPion XL [Wellbutrin XL] 150 mg PO DAILY Cholecalciferol [Vitamin D3 (125 Mcg = 5000 Iu)] 125 mcg PO DAILY Acetaminophen Tab [Tylenol] 1,000 mg PO Q6HR PRN #30 tablet PRN Reason: Pain Divalproex ER [Depakote ER] 1,000 mg PO HS Fenofibrate [Lofibra] 54 mg PO DAILY oxyCODONE HCL [OxyIR] 5 mg PO Q6H PRN 3 Days #12 tab PRN Reason: Pain Amoxic-Pot Clav 875-125Mg [Augmentin 875-125] 1 tab PO BID 7 Days #14 tab Discharge Medication List Enalapril [Vasotec] 10 mg PO DAILY 05/21/18 [History] Simvastatin [Zocor] 20 mg PO HS 05/21/18 [History] Famotidine [Pepcid] 20 mg PO BID 11/11/22 [History] sitaGLIPtin [Januvia] 100 mg PO DAILY 11/11/22 [History] ARIPiprazole IM SYRINGE [Abilify Maintena Syringe] 400 mg IM QMONTHLY #1 each 05/23/24 [Rx] ARIPiprazole [Abilify] 20 mg PO DAILY 13 Days #13 tab 05/23/24 [Rx] Divalproex ER [Depakote ER] 1,000 mg PO HS 30 Days #90 tab 05/23/24 [Rx] buPROPion XL [Wellbutrin XL] 300 mg PO DAILY 30 Days #30 tab 05/23/24 [Rx] metFORMIN HCL [Glucophage] 1,000 mg PO BID 30 Days #60 05/23/24 [Rx] Follow up Appointment(s)/Referral(s): [facility] [Primary Care Provider] - 1-2 days Activity/Diet/Wound Care/Special Instructions: [facility] Discharge Info Avoid the use of street drugs and alcohol. Take all medications as prescribed. When you are in need of refills on your medications, please contact your outpatient medical provider and/or outpatient psychiatrist. Please go to your scheduled outpatient appointments for aftercare treatment. If symptoms return or become worse, call the crisis line at or and/or visit the nearest emergency room for assistance. National Suicide and Crisis Lifeline - call or text 326 Discharge Disposition: HOME SELF-CARE
[2024-05-23 12:43] LABS: Glucose,Whole Blood 129 mg/dL (70-110)
== END 2024-05-23 14:43 | disposition home or self-care (01) | DRG 761 ==
LOC: EC 20:45 → 3MHU 05-18 02:22
PROVIDERS: ADMIT Psychiatry & Neurology Psychiatry; ATTEND Psychiatry & Neurology Psychiatry
DX: F25.0 Schizoaffective disorder, bipolar type (principal); F41.1 Generalized anxiety disorder; E11.9 Type 2 diabetes mellitus without complications; E78.5 Hyperlipidemia, unspecified; E86.0 Dehydration; E87.20 Acidosis, unspecified; G40.909 Epilepsy, unspecified, not intractable, without status epilepticus; G47.9 Sleep disorder, unspecified; I10 Essential (primary) hypertension; K59.00 Constipation, unspecified; R11.2 Nausea with vomiting, unspecified; R45.851 Suicidal ideations; Z56.0 Unemployment, unspecified; Z63.5 Disruption of family by separation and divorce; Z79.84 Long term (current) use of oral hypoglycemic drugs; Z79.899 Other long term (current) drug therapy; Z87.891 Personal history of nicotine dependence; Z11.52 Encounter for screening for COVID-19; Z71.89 Other specified counseling; Z60.2 Problems related to living alone
CPT/HCPCS: 36415; 74177; 80053; 80061; 80164; 80306; 80320; 81001; 82075; 82150; 82607; 83036; 83540; 83550; 83605; 83690; 83735; 84443; 85025; 85610; 85730; 87636; 93005; 96361; 96374; 96375; 99285

== ENCOUNTER 2024-08-26 15:32 | Emergency (ER) | payer OTHER ==
[2024-08-26 16:42] VITALS: TEMP 97.5
--- NOTE | 2024-08-26 18:06 | ED ---
General Adult HPI - General Source: patient, RN notes reviewed Mode of arrival: ambulatory Limitations: no limitations <Rico Sanchez - Last Filed: 08/26/24 18:03> - General Source: patient, RN notes reviewed Mode of arrival: ambulatory Limitations: no limitations <Tevin Avila - Last Filed: 08/26/24 23:22> - General Chief complaint: Skin/Abscess/Foreign Body Stated complaint: both legs and feet swollen Time Seen by Provider: 08/26/24 15:50 - History of Present Illness Initial comments: Quick note: This is a 53-year-old male with history including DM, hypertension and hyperlipidemia presenting for bilateral foot swelling x 1 month. Patient denies recent trauma or known cause for swelling. Denies associated pain with ambulation, color change, history of heart failure, recent surgery or long distance travel. (Rico Sanchez) 53-year-old male presents emergency department chief complaint leg swelling. Patient states he has been having bilateral leg swelling for the last month. Denies any chest pain or shortness of breath no history of leg swelling like this. He does have a history of hypertension hyperlipidemia diabetes. Denies history of heart failure no leg pain associate the swelling. (Tevin Avila) - Related Data Home Medications Medication Instructions Recorded Confirmed Enalapril [Vasotec] 10 mg PO DAILY 05/21/18 11/11/22 Simvastatin [Zocor] 20 mg PO HS 05/21/18 11/11/22 Famotidine [Pepcid] 20 mg PO BID 11/11/22 11/11/22 sitaGLIPtin [Januvia] 100 mg PO DAILY 11/11/22 11/11/22 Previous Rx's Medication Instructions Recorded ARIPiprazole IM SYRINGE [Abilify 400 mg IM QMONTHLY #1 each 05/23/24 Maintena Syringe] ARIPiprazole [Abilify] 20 mg PO DAILY 13 Days #13 tab 05/23/24 Divalproex ER [Depakote ER] 1,000 mg PO HS 30 Days #90 tab 05/23/24 buPROPion XL [Wellbutrin XL] 300 mg PO DAILY 30 Days #30 tab 05/23/24 metFORMIN HCL [Glucophage] 1,000 mg PO BID 30 Days #60 05/23/24 Furosemide [Lasix] 20 mg PO DAILY #3 tab 08/26/24 Allergies Allergy/AdvReac Type Severity Reaction Status Date / Time No Known Allergies Allergy Verified 01/07/24 05:30 Review of Systems ROS Other: All systems not noted in ROS Statement are negative. <Rico Sanchez - Last Filed: 08/26/24 18:03> ROS Other: All systems not noted in ROS Statement are negative. <Tevin Avila - Last Filed: 08/26/24 23:22> ROS Statement: Those systems with pertinent positive or pertinent negative responses have been documented in the HPI. Past Medical History Past Medical History: Diabetes Mellitus, Hyperlipidemia, Hypertension History of Any Multi-Drug Resistant Organisms: None Reported Past Surgical History: Appendectomy Past Anesthesia/Blood Transfusion Reactions: No Reported Reaction Past Psychological History: Anxiety, Bipolar, Depression Smoking Status: Former smoker - Past Family History Mother History Unknown: Yes <Rico Sanchez - Last Filed: 08/26/24 18:03> General Exam Limitations: no limitations <Rico Sanchez - Last Filed: 08/26/24 18:03> General appearance: alert, in no apparent distress Head exam: Present: atraumatic, normocephalic, normal inspection Eye exam: Present: normal appearance, PERRL, EOMI. Absent: scleral icterus, conjunctival injection, periorbital swelling ENT exam: Present: normal exam, normal oropharynx, mucous membranes moist Neck exam: Present: normal inspection, full ROM. Absent: tenderness, meningismus, lymphadenopathy Respiratory exam: Present: normal lung sounds bilaterally. Absent: respiratory distress, wheezes, rales, rhonchi, stridor Cardiovascular Exam: Present: regular rate, normal rhythm, normal heart sounds. Absent: systolic murmur, diastolic murmur, rubs, gallop, clicks Extremities exam: Present: normal capillary refill, pedal edema. Absent: calf tenderness <Tevin Avila - Last Filed: 08/26/24 23:22> - General Exam Comments Initial Comments: Visual Physical Exam Vital signs reviewed General: Well-appearing, nontoxic, no acute distress. Head: Normocephalic, atraumatic Eyes: PERRLA, EOMI ENT: Airway patent Chest: Nonlabored breathing Skin: No visual rash, normal skin tone Neuro: Alert and oriented 3 Musculoskeletal: No gross abnormalities (Rico Sanchez) Course Vital Signs 08/26/24 08/26/24 16:37 22:20 Temperature 97.5 F L Pulse Rate 65 73 Respiratory 20 16 Rate Blood Pressure 130/88 140/101 O2 Sat by Pulse 99 98 Oximetry EKG Findings - EKG Comments: EKG Findings:: EKG performed at 20: 22 sinus rhythm rate of 66 CA 156 QRS 82 QT/QTc 353/367 - EKG Results: EKG: interpreted by ERMD <Tevin Avila - Last Filed: 08/26/24 23:22> Medical Decision Making <Rico Sanchez - Last Filed: 08/26/24 18:03> - Lab Data Result diagrams: 08/26/24 22:20 08/26/24 22:20 <Tevin Avila - Last Filed: 08/26/24 23:22> - Medical Decision Making I completed the quick note portion of this chart signed MRELIN Tejada (Rico Sanchez) Was pt. sent in by a medical professional or institution (VANDANA Leon, ACCOUNT MANAGER TRAINEE, urgent care, hospital, or shelter...) When possible be specific @ -No Did you speak to anyone other than the patient for history (EMS, parent, family, police, friend...)? What history was obtained from this source @ -No Did you review nursing and triage notes (agree or disagree)? Why? @ -I reviewed and agree with nursing and triage notes Were old charts reviewed (outside hosp., previous admission, EMS record, old EKG, old radiological studies, urgent care reports/EKG's, shelter records)? Report findings @ -No old charts were reviewed Differential Diagnosis (chest pain, altered mental status, abdominal pain women, abdominal pain men, vaginal bleeding, weakness, fever, dyspnea, syncope, headache, dizziness, GI bleed, back pain, seizure, CVA, palpatations, mental health, musculoskeletal)? @ -Leg edema, CHF, stasis EKG interpreted by me (3pts min.). @ -EKG performed at 23: 05 sinus rhythm rate 92 CA 146 QRS 108 QT/QTc 348/398 X-rays interpreted by me (1pt min.). @ -Chest x-ray shows no acute cardiopulmonary process. CT interpreted by me (1pt min.). @ -None done U/S interpreted by me (1pt. min.). @ -None done What testing was considered but not performed or refused? (CT, X-rays, U/S, labs)? Why? @ -None What meds were considered but not given or refused? Why? @ -None Did you discuss the management of the patient with other professionals (professionals i.e. , PA, ACCOUNT MANAGER TRAINEE, lab, RT, psych nurse, social science research assistant, meat process worker, teacher, systems support officer, onsite case manager)? Give summary @ -No Was smoking cessation discussed for >3mins.? @ -No Was critical care preformed (if so, how long)? @ -No Were there social determinants of health that impacted care today? How? (Homelessness, low income, unemployed, alcoholism, drug addiction, transportation, low edu. Level, literacy, decrease access to med. care, nursing home, rehab)? @ -No Was there de-escalation of care discussed even if they declined (Discuss DNR or withdrawal of care, Hospice)? DNR status @ -No What co-morbidities impacted this encounter? (DM, HTN, Smoking, COPD, CAD, Cancer, CVA, ARF, Chemo, Hep., AIDS, mental health diagnosis, sleep apnea, morbid obesity)? @ -Diabetes hypertension Was patient admitted / discharged? Hospital course, mention meds given and route, prescriptions, significant lab abnormalities, going to OR and other pertinent info. @ -Discharge patient presented for leg edema labs are/unremarkable x-rays unremarkable patient given Lasix advised to wear compression stockings. Undiagnosed new problem with uncertain prognosis? @ -No Drug Therapy requiring intensive monitoring for toxicity (Heparin, Nitro, Insulin, Cardizem)? @ -No Were any procedures done? @ -No Diagnosis/symptom? @ -Leg edema Acute, or Chronic, or Acute on Chronic? @ -Acute Uncomplicated (without systemic symptoms) or Complicated (systemic symptoms)? @ -complicated Side effects of treatment? @ -No Exacerbation, Progression, or Severe Exacerbation? @ -No Poses a threat to life or bodily function? How? (Chest pain, [place], [place], pneumonia, PE, COPD, DKA, ARF, appy, cholecystitis, CVA, Diverticulitis, Homicidal, Suicidal, threat to staff... and all critical care pts) @ -No (Tevin Avila) - Lab Data Lab Results 08/26/24 08/26/24 Range/Units 22:20 22:20 WBC 5.47 (4.50-10.00) 10*3/uL RBC 4.54 (4.40-5.60) 10*6/uL Hgb 12.0 L (13.0-17.0) g/dL Hct 38.0 L (39.6-50.0) % MCV 83.7 (80.0-97.0) fL MCH 26.4 L (27.0-32.0) pg MCHC 31.6 L (32.0-37.0) g/dL Plt Count 141 (140-440) 10*3/uL MPV 12.0 (9.5-12.2) fL Immature Gran % (Auto) 0 % Neutrophils % 40.6 % Lymphocytes % 47.3 % Monocytes % 7.3 % Eosinophils % 3.7 % Basophils % 1.1 % Immature Gran # 0.00 (0.00-0.04) 10*3/uL Neutrophils # 2.22 (1.80-7.70) 10*3/uL Lymphocytes # 2.59 (0.90-5.00) 10*3/uL Monocytes # 0.40 (0.20-1.00) 10*3/uL Eosinophils # 0.20 (0.04-0.35) 10*3/uL Basophils # 0.06 (0.00-0.10) 10*3/uL Sodium 137 (137-145) mmol/L Potassium 4.6 (3.5-5.1) mmol/L Chloride 99 (98-107) mmol/L Carbon Dioxide 25 (22-30) mmol/L Anion Gap 13 mmol/L BUN 18 (9-20) mg/dL Creatinine 0.71 (0.66-1.25) mg/dL Est GFR (CKD-EPI)AfAm >90 (>60 ml/min/1.73 sqM) Est GFR (CKD-EPI)NonAf >90 (>60 ml/min/1.73 sqM) Glucose 160 H (74-99) mg/dL Calcium 10.2 (8.4-10.2) mg/dL Magnesium 1.7 (1.6-2.3) mg/dL Total Bilirubin 0.3 (0.2-1.3) mg/dL AST 18 (17-59) U/L ALT 14 (4-49) U/L Alkaline Phosphatase 51 (38-126) U/L NT-Pro-B Natriuret Pep <20 pg/mL Total Protein 7.1 (6.3-8.2) g/dL Albumin 4.4 (3.5-5.0) g/dL Disposition <Rico Sanchez - Last Filed: 08/26/24 18:03> Is patient prescribed a controlled substance at d/c from ED?: No Time of Disposition: 23:22 <Tevin Avila - Last Filed: 08/26/24 23:22> Clinical Impression: Leg edema Disposition: HOME SELF-CARE Condition: Stable Instructions (If sedation given, give patient instructions): Leg Edema (ED) Additional Instructions: Please return to the Emergency Department if symptoms worsen or any other concerns. Prescriptions: Furosemide [Lasix] 20 mg PO DAILY #3 tab Referrals: Andre Hinojosa MD [Primary Care Provider] - 1-2 days
--- NOTE | 2024-08-26 22:12 | XR ---
EXAMINATION TYPE: XR chest 1V DATE OF EXAM: 08/26/2024 8:33 PM COMPARISON: 06/04/2022 CLINICAL INDICATION: Male, 53 years old with history of sob, TECHNIQUE: XR chest 1V view(s) obtained. FINDINGS: The heart size is normal. The pulmonary vasculature is normal. The lungs are clear. IMPRESSION: 1. No acute pulmonary process. [facility], , 08/26/2024 10:09 PM
[2024-08-26 22:21] VITALS: PULSE 73
[2024-08-26 22:51] LABS: Basophils # (A) 0.06 10*3/uL (0.00-0.10); Basophils % (A) 1.1 %; Eosinophils # (A) 0.20 10*3/uL (0.04-0.35); Eosinophils % (A) 3.7 %; HCT 38.0 % (39.6-50.0); HGB 12.0 g/dL (13.0-17.0); Lymphocytes # (A) 2.59 10*3/uL (0.90-5.00); Lymphocytes % (A) 47.3 %; MCH 26.4 pg (27.0-32.0); MCHC 31.6 g/dL (32.0-37.0); MCV 83.7 fL (80.0-97.0); Monocytes # (A) 0.40 10*3/uL (0.20-1.00); Monocytes % (A) 7.3 %; Neutrophils # (A) 2.22 10*3/uL (1.80-7.70); Neutrophils % (A) 40.6 %; Platelet Count 141 10*3/uL (140-440); RBC 4.54 10*6/uL (4.40-5.60); RDW 13.6 % (11.5-14.5); WBC 5.47 10*3/uL (4.50-10.00)
[2024-08-26 23:05] LABS: ALT 14 U/L (4-49); AST 18 U/L (17-59); African American GFR (CKD) >90 (>60 ml/min/1.73 sqM); Albumin 4.4 g/dL (3.5-5.0); Alkaline Phosphatase 51 U/L (38-126); Anion Gap 13 mmol/L; Blood Urea Nitrogen 18 mg/dL (9-20); Calcium 10.2 mg/dL (8.4-10.2); Carbon Dioxide 25 mmol/L (22-30); Chloride 99 mmol/L (98-107); Glucose 160 mg/dL (74-99); Magnesium 1.7 mg/dL (1.6-2.3); Non-African American GFR(CKD) >90 (>60 ml/min/1.73 sqM); Potassium 4.6 mmol/L (3.5-5.1); Sodium 137 mmol/L (137-145); Total Protein 7.1 g/dL (6.3-8.2)
[2024-08-26 23:13] LABS: NT-Pro-B-Type Natriuretic Pept <20 pg/mL
[2024-08-26] MEDS: FUROSEMIDE 10 MG/ML 2 ML VIAL IV ONE (23:33)
[2024-08-26 23:36] VITALS: BP 118/84; RESP 12
== END 2024-08-26 23:57 | disposition home or self-care (01) ==
LOC: EC 15:32
DX: R60.0 Localized edema (principal); E11.9 Type 2 diabetes mellitus without complications; E78.5 Hyperlipidemia, unspecified; I10 Essential (primary) hypertension
CPT/HCPCS: 36415; 93005; 83880; 80053; 83735; 85025; 71045; 99284; 96374; J1938